=== PATIENT | female | born 1950 | race Caucasian/White ===

== ENCOUNTER → 2017-04-22 | Outpatient (CLI) | payer BC ==
--- NOTE | 2017-04-22 17:11 | XR ---
EXAMINATION TYPE: XR chest 2V DATE OF EXAM: 04/22/2017 COMPARISON: 02/07/2011 HISTORY: 66-year-old female with cough and night sweats TECHNIQUE: Frontal and lateral views FINDINGS: The cardiomediastinal silhouette, aorta, and pulmonary vasculature are within normal limits. There is some patchy right basilar opacity, new from prior. No other consolidation or pleural effusion. IMPRESSION: Possible early pneumonia at the right base. Follow-up recommended.
[2017-04-24 10:19] LABS: Bordedella pertussis Not detected (Not detected); Bordetella holmesII Not detected (Not detected)
== END | disposition home or self-care (01) ==
LOC: LABMAIN 14:40
PROVIDERS: ATTEND Emergency Medicine
DX: R05 Cough (principal); R61 Generalized hyperhidrosis
CPT/HCPCS: 71020; 87798

== ENCOUNTER → 2017-05-17 | Outpatient (CLI) | payer BC ==
--- NOTE | 2017-05-17 14:50 | XR ---
EXAMINATION TYPE: XR chest 2V DATE OF EXAM: 05/17/2017 COMPARISON: Prior chest x-ray 04/22/2017 HISTORY: Pneumonia, J 19 TECHNIQUE: Frontal and lateral views of the chest are obtained. FINDINGS: There is improvement in aeration as compared to prior exam. No pneumothorax or pleural eff usion. Cardiac mediastinal silhouette, pulmonary vascularity and momo are stable. IMPRESSION: Improved right middle lobe pneumonia.
== END ==
LOC: RADXRMAIN 14:27
PROVIDERS: ATTEND Emergency Medicine
DX: J18.1 Lobar pneumonia, unspecified organism (principal)
CPT/HCPCS: 71020

== ENCOUNTER → 2018-03-06 | Outpatient (CLI) | payer BC ==
--- NOTE | 2018-03-06 16:19 | XR ---
EXAMINATION TYPE: XR chest 2V DATE OF EXAM: 03/06/2018 COMPARISON: Prior exam 05/17/2017 HISTORY: Fever and cough TECHNIQUE: Frontal and lateral views of the chest are obtained. FINDINGS: There is no focal air space opacity, pleural effusion, or pneumothorax seen. The cardiac silhouette size is within normal limits. The osseous structures are intact. IMPRESSION: No acute cardiopulmonary process.
== END | disposition home or self-care (01) ==
LOC: RADXRMAIN 13:18
PROVIDERS: ATTEND Family Medicine
DX: R05 Cough (principal); R50.9 Fever, unspecified
CPT/HCPCS: 71046

== ENCOUNTER → 2018-10-24 | Outpatient (CLI) | payer MEDICARE, BC ==
--- NOTE | 2018-11-01 09:03 | MM ---
Reason for exam: screening (asymptomatic). Last mammogram was performed 1 year and 1 month ago. History: Patient is postmenopausal and has history of other cancer at age 32. Family history of breast cancer in 2 paternal cousins. excisional biopsy of the left breast, October 20, 2006. Benign excisional biopsy of the left breast, July 02, 2001. Took estrogen for 10 years beginning at age 44. MG 3D Screening Mammo W/Cad Bilateral CC and MLO view(s) were taken. Prior study comparison: September 20, 2017, bilateral MG 3d screening mammo w/cad. January 30, 2015, bilateral MG screening mammo w CAD. The breast tissue is heterogeneously dense. This may lower the sensitivity of mammography. Chronic nodularity right breast. Subtle grouped calcifications left breast increased from prior study. ASSESSMENT: Incomplete: need additional imaging evaluation, BI-RAD 0 RECOMMENDATION: Special view mammogram of the left breast.
== END | disposition home or self-care (01) ==
LOC: RADMAMWWP 13:09
PROVIDERS: ATTEND Family Medicine
DX: Z12.31 Encounter for screening mammogram for malignant neoplasm of breast (principal)
CPT/HCPCS: 77063; 77067

== ENCOUNTER → 2018-10-31 | Outpatient (CLI) | payer MEDICARE, BC ==
--- NOTE | 2018-11-01 09:12 | MM ---
Reason for exam: additional evaluation requested from abnormal screening. Last mammogram was performed 1 year and 1 month ago. History: Patient is postmenopausal and has history of other cancer at age 32. Family history of breast cancer in 2 paternal cousins. excisional biopsy of the left breast, October 20, 2006. Benign excisional biopsy of the left breast, July 02, 2001. Took estrogen for 10 years beginning at age 44. Indicated problem(s): other indicated problem in the left breast. Physical Findings: Nurse Summary: a 0.5 x 0.5 cm dominant mass a 1 o'clock at the nipple. MG 3D Work Up W/Cad LT CC with magnification, LM with magnification, and LM view(s) were taken of the left breast. Prior study comparison: September 20, 2017, bilateral MG 3d screening mammo w/cad. January 30, 2015, bilateral MG screening mammo w CAD. There are suspicious grouped fine calcification in the left upper inner middle breast 6 cm from the nipple. Finding is changed when compared to prior studies. An ultrasound of the BB palpable on the left breast will be done. ASSESSMENT: Incomplete: Need prior studies RECOMMENDATION: Stereotactic core biopsy and ultrasound of the left breast. Ultrasound of the palpable.
--- NOTE | 2018-11-01 09:26 | USB ---
Reason for exam: additional evaluation requested from prior study. History: Patient is postmenopausal and has history of other cancer at age 32. Family history of breast cancer in 2 paternal cousins. excisional biopsy of the left breast, October 20, 2006. Benign excisional biopsy of the left breast, July 02, 2001. Took estrogen for 10 years beginning at age 44. Indicated problem(s): palpable abnormality in the left breast. US Breast Limited LT Left limited breast ultrasound including focal area of concern, retroareolar and axilla demonstrates 2.1 x 1.9 x 1.0 cm oval node at axilary tail, a 0.6 x 0.4 x 0.2 cm oval mixed hypoechoic lesion that correlates with the palpable at the 12 o'clock position. These results were verbally communicated with the patient and result sheet given to the patient on 10/31/18. ASSESSMENT: Suspicious, BI-RAD 4 RECOMMENDATION: Ultrasound core biopsy of the left breast. And a Stereo core Biopsy of the Left breast. Called Dr. Price with mammographic findings and has scheduled an appointment for the patient for 11/15/18 at 2:oo pm with Dr. Gross. Stereotactic core biopsy and ultrasound guided core biopsy are to be don on 11/27/18 at 8:00 am. An appointment has been made for the patient with Dr. Gross on 12/06/18 at 12:40 pm to go over the results. PRELIMINARY REPORT CALLED AND FAXED TO DR. GROSS ON 10/31/18.
== END | disposition home or self-care (01) ==
LOC: RADMAMWWP 07:42
PROVIDERS: ATTEND Family Medicine
DX: R92.8 Other abnormal and inconclusive findings on diagnostic imaging of breast (principal)
CPT/HCPCS: 77065; 76642; G0279; 77061

== ENCOUNTER → 2018-11-15 | Outpatient (CLI) | payer MEDICARE, BC ==
[2018-11-15 14:27] VITALS: BP 160/67; PULSE 78; RESP 18; TEMP 98.9; BMI 26.0
--- NOTE | 2018-11-15 15:21 | P.GSHP ---
History of Present Illness H&P Date: 11/15/18 Chief Complaint: abnormal mammogram and ultrasound left breast Skylar is a 68-year-old white female who presents with a routine mammogram revealing an area of concern in the left breast. There are suspicious grouped fine calcifications in the upper middle breast 6 cm from the nipple. This area is believed to be changed when compared to prior studies. Additionally an ultrasound was performed and in the ultrasound 0.6 cm lesion was identified at the 12 o'clock position which was at an area of palpable change and therefore biopsy was recommended of this site as well. The patient had not felt anything of concern in her breast prior to the radiographs. She denies any trauma or infection in the breast. She has no nipple discharge or skin changes for which she is concerned about at this time. Family History: 1. patient: thyroid cancer 2. sister: leukemia at 73 3. mother: thyroid cancer 4. sister: breast cancer Hormonal History: menarche: 15 : 3, 3 children, twins one miscarrage first at 31, breast fed: yes menopause: 43 hysterctomy for bleeding, no cancer BCP: none hormones: 10 years, prempro Past Surgical History: 1. total thyroidectomy 2. 2 c-sections 3. gallbladder 4. partial hysterectomy 5. breast biopsy times two left Past Medical History: 1. rheumatoid artritis 2. CREST syndrome 3. PUD Social History: smoke: none alcohol: none drugs: none - Constitutional Constitutional: Denies chills, Denies fever - EENT Comment: migraines in past now stopped Eyes: denies blurred vision, denies pain Ears: bilateral: tinnitus, deny: decreased hearing Ears, nose, mouth and throat: Reports headache, Denies sore throat - Breasts Breasts: bilateral: as per HPI - Cardiovascular Cardiovascular: Denies chest pain, Denies shortness of breath - Respiratory Respiratory: Denies cough, Denies 7 - Gastrointestinal Comment: esophogeal spasm, PUD Gastrointestinal: Reports constipation - Genitourinary (Female) Genitourinary: Denies dysuria, Denies hematuria - Menstruation Menstruation: Reports post hysterectomy - Musculoskeletal Comment: rheumatoid arthritis - Neurological Comment: telangectasia - Psychiatric Psychiatric: Denies anxiety, Denies depression - Endocrine Comment: thyroid cancer, parathroids removed with the surgery Endocrine: Denies fatigue, Denies weight change - Hematologic/Lymphatic Comment: none - Allergic/Immunologic Allergic/Immunologic: Reports as per HPI Past Medical History Past Medical History: Cancer, Rheumatoid Arthritis (RA), Thyroid Disorder Additional Past Medical History / Comment(s): hx thyroid cancer 1981, connective tissue disorder History of Any Multi-Drug Resistant Organisms: None Reported Past Surgical History: Appendectomy, Section, Cholecystectomy, Hysterectomy Additional Past Surgical History / Comment(s): Thyroidectomy Past Anesthesia/Blood Transfusion Reactions: No Reported Reaction Past Psychological History: No Psychological Hx Reported Smoking Status: Never smoker Past Alcohol Use History: None Reported Past Drug Use History: None Reported - Past Family History Father Family Medical History: Hypertension, Myocardial Infarction ([place]) Additional Family Medical History / Comment(s): at 39 [place] Mother Family Medical History: AFIB, Thyroid Disorder Additional Family Medical History / Comment(s): Thyroid cancer Medications and Allergies Home Medications Medication Instructions Recorded Confirmed Type Calcitriol 0.25 mcg PO WEEKLY 11/07/18 11/15/18 History Calcium Carbonate [Calcium] 1,000 mg PO DAILY 11/07/18 11/15/18 History Hydroxychloroquine Sulfate 200 mg PO BID 11/07/18 11/15/18 History [Plaquenil] Levothyroxine Sodium [Synthroid] 88 mcg PO DAILY 11/07/18 11/15/18 History Liothyronine Sodium 25 mcg PO DAILY 11/07/18 11/15/18 History Nisoldipine [Sular] 30 mg PO DAILY 11/07/18 11/15/18 History Allergies Allergy/AdvReac Type Severity Reaction Status Date / Time leflunomide [From Arava] Allergy Rash/Hives Verified 11/07/18 10:59 methotrexate AdvReac Unknown Verified 10/31/18 08:35 morphine AdvReac Unknown Verified 10/31/18 08:35 Surgical - Exam Vital Signs Temp Pulse Resp BP Pulse Ox 98.9 F 78 18 160/67 98 11/15/18 13:55 11/15/18 13:55 11/15/18 13:55 11/15/18 13:55 11/15/18 13:55 - General well developed, well nourished, no distress - Eyes normal ocular movement - ENT no hearing loss, no congestion - Neck no masses, trachea midline - Respiratory normal respiratory effort, clear to auscultation - Cardiovascular Rhythm: regular Heart Sounds: normal: S1, S2 - Abdomen Abdomen: soft - Integumentary well healed scars left breast - Neurologic no disoriented, no combative - Musculoskeletal normal gait, normal posture - Psychiatric oriented to time, oriented to place, memory intact Breast examination: Right breast: Multi-positional exam no dominant masses or nodules of concern Right axilla: No adenopathy of concern Left breast: Multi-positional exam well-healed scars in the 9 o'clock position left axilla: no adenopathy of concern Results mammogram and ultrasound radiographs reviewed Assessment and Plan Assessment: Impression: 1. Crest syndrome 2. Abnormal mammogram and ultrasound of the left breast 3. rheumatoid arthritis Plan: 1. stero and ultrasound biopsy of the left breast 2. medical managment of medical problems CC: Dr. Aggarwal
== END ==
LOC: WWCWWP 13:47
PROVIDERS: ATTEND Surgery
DX: Z53.9 Procedure and treatment not carried out, unspecified reason (principal)

== ENCOUNTER → 2018-11-27 | Day surgery (SDC) | payer MEDICARE, BC ==
[2018-11-27 07:25] VITALS: RESP 16; BMI 26.2
--- NOTE | 2018-11-27 08:50 | P.OP ---
Date of Procedure: 11/27/18 Preoperative Diagnosis: Mammographic abnormality left breast Postoperative Diagnosis: Same Procedure(s) Performed: Left breast stereotactic core biopsy Anesthesia: local Surgeon: Roxanne Gross Estimated Blood Loss (ml): 2 Pathology: other (Breast tissue) Condition: stable Disposition: same day Indications for Procedure: Mammographic abnormality of suspicious grouped fine calcifications left breast upper inner middle breast 6 cm from the nipple Operative Findings: Microcalcifications in radiographed specimen Description of Procedure: Skylar is a 68-year-old white female who on a mammogram done 10/31/18 was noted to have a suspicious finding of grouped calcifications in the left breast in the upper inner middle area 6 cm from the nipple. The finding was changed when compared to prior studies. Stereotactic biopsy of this area was recommended. Additionally an ultrasound was done of a palpable area in the left breast which revealed a small lesion; an ultrasound-guided biopsy of the site was also recommended. Risks and benefits of the procedure were discussed with the patient and her . Following this they wished to proceed with stereotactic biopsy of the left breast, this will be followed by ultrasound biopsy of the area noted of concern as well. The patient was taken to the stereotactic room and positioned on the lo-rad table such that a medial to lateral approach was utilized to identify the lesion of concern. After the lesion of concern had been identified radiographically, stereotactic pairs were obtained. The lesion was targeted. The target was transmitted to the lo rad table. The breast was prepped using Betadine. 1% lidocaine with bicarbonate was used to anesthetize the area of concern. Approximately 20 mL of lidocaine was utilized. A 9-gauge vacuum- assisted cutting rotating core biopsy needle was inserted into the breast and prefire films were obtained. This was noted to be in the correct location and the needle was fired. Post films were obtained and the correct location was confirmed. 12 samples were obtained from the area. Radiograph of the specimen revealed the area of concern had been sampled. A secure chikis top had marker was deployed and radiographic evaluation confirmed it was in the correct location. The specimen was sent to pathology. The patient tolerated the procedure in stable condition. She will follow-up Dr. Bobo next week. Prior to leaving the radiology department today an ultrasound will be performed with a possible ultrasound core biopsy of the second area in the breast.
[2018-11-27 10:10] VITALS: BP 114/68; PULSE 70; TEMP 97.8
--- NOTE | 2018-11-27 12:18 | USB ---
EXAMINATION TYPE: MG stereo VAD BX LT, US biopsy breast VAD LT DATE OF EXAM: 11/27/2018 CLINICAL HISTORY: 68-year-old female referred for biopsy of left breast microcalcifications and also for a palpable ultrasound finding at 12:00. R92.8 ABNORMAL MAMMOGRAM. TECHNIQUE: Stereotactic guided core biopsy of the left breast microcalcifications. Ultrasound-guided biopsy of the small 4 to 5 mm palpable area at 12:00. COMPARISON: 10/24/2018 and 10/31/2018 FINDINGS: STEREOTACTIC BIOPSY, LEFT, 10:00 microcalcifications: The procedure of stereotactic guided core biopsy was explained to the patient. Benefits, alternatives, and risks were discussed. An informed consent was then obtained. The shortness pathway for biopsy was chosen. Shortness pathway was a medial approach. I performed the localization, then surgeon, Dr. Jeramie Esposito performed the remainder of the procedure. A vacuum assisted biopsy gun was used to obtain multiple core samples. The patient tolerated the procedure well without any immediate complication. The patient was kept in the radiology department for short stay after the procedure and then discharged home in stable condition. Targeted calcifications are identified in specimen mammogram. Post biopsy mammogram shows the clip to appear in satisfactory position relative to the targeted area of concern on the preprocedure images at approximately 10:00 position. ULTRASOUND-GUIDED BIOPSY, LEFT 12:00 PALPABLE 4 to 5 mm lesion: The procedure of ultrasound guided core biopsy was explained to the patient. Benefits, alternatives, and risks were discussed. An informed consent was then obtained. The patient was placed in supine positioning for imaging and for the procedure. The overlying skin was prepped and draped in usual sterile fashion. Lidocaine buffered with bicarbonate was used as anesthetic into the skin and subcutaneous tissue up to area of concern in the 12:00 left breast. Under ultrasound guidance, a 13-gauge vacuum-assisted mammotome Elite biopsy gun device was used to obtain 3 core samples. Following this, a wing clip was left at the site of biopsy. Essentially the entire lesion was sampled during the 3 passes. The patient tolerated the procedure well without any immediate complication. The patient was kept in the radiology department for short stay after the procedure and then discharged home in stable condition. Post procedure mammogram shows the wing clip at the central 12 to 1:00 position anteriorly in the left breast. IMPRESSION: Successful, uncomplicated: 1. Stereotactic core needle biopsy of 10:00 microcalcifications in the left breast. 2. Ultrasound guided core biopsy of small but palpable 12:00 area in the left breast. Full pathology results to follow. Pathology Results: Malignant A. 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 Background fibrocystic changes. B. LEFT BREAST, 12:00, ULTRASOUND GUIDED CORE BIOPSY: Benign breast with stromal fibrosis. Recommendation Surgical consult of the left breast. Continued surgical management. Xray guided localization. MTDD
== END | disposition home or self-care (01) ==
LOC: RADMAMWWP 06:51
PROVIDERS: ATTEND Surgery
DX: D05.12 Intraductal carcinoma in situ of left breast (principal); N60.32 Fibrosclerosis of left breast; Z88.8 Allergy status to other drugs, medicaments and biological substances
CPT/HCPCS: 88305 ×2; 88342; 88341; 19081; 19083; A4648 ×2; J2001

== ENCOUNTER → 2018-11-30 | Outpatient (CLI) | payer MEDICARE, BC ==
[2018-11-30 12:08] VITALS: BP 142/68; PULSE 80; RESP 18; TEMP 97.1
--- NOTE | 2018-11-30 13:14 | P.PN ---
Subjective Progress Note Date: 11/30/18 The patient is a 68-year-old white female who is status post core biopsy of 2 areas of concern in the left breast on . The stereotactic core biopsy was low-grade DCIS approximately 2 mm in size. The second area at 12:00 was an ultrasound-guided core biopsy which revealed benign breast with stromal fibrosis. The patient at this time is doing well without complaints related to the biopsies. Physical exam: Examination of the breast reveals a core biopsy sites are clean and dry No evidence of hematoma No evidence of any infection The results of the biopsy were discussed in detail with the patient and her . They were given the option of lumpectomy and radiation therapy including possible Nandini radiation therapy versus mastectomy. We discussed the fact that this would be presented at tumor board and at this time I'm not recommending a sentinel node biopsy but that this may be recommended after tumor board. The patient and her also understand that if a lumpectomy is performed there is a risk that the margins could be positive would have to go back and reexcision of that the lesion could be found to have an invasive component in which case it will be recommended that she have further interrogation of the axilla. At this time they wish to proceed with a lumpectomy. The case will be presented at tumor board. This is a TisN0 M0 grade 1 breast cancer stage is 0 receptor status is pending. Cc: Dr. Price Objective - Vital Signs Vital signs: Vital Signs Temp 97.1 F L 11/30/18 12:06 Pulse 80 11/30/18 12:06 Resp 18 11/30/18 12:06 BP 142/68 11/30/18 12:06 Pulse Ox 95 11/30/18 12:06 Intake & Output 11/29/18 11/30/18 11/30/18 18:59 06:59 18:59 Weight 66.224 kg
--- NOTE | 2018-12-11 16:02 | P.PN ---
Progress Note - Text Progress Note Date: 12/11/18 Following presentation of the patients case at tumor board there was some consideration if the patient would be a candidate for genetic testing. I have given the patient the option, and at this time she wishes to proceed with surgery without genetic evaluation. She states that even if she were to be BRCA1 positive at this time it would not change her surgical decision making and she would proceed with a lumpectomy.
== END ==
LOC: WWCWWP 11:42
PROVIDERS: ATTEND Surgery
DX: Z53.9 Procedure and treatment not carried out, unspecified reason (principal)

== ENCOUNTER 2018-12-18 10:03 | Day surgery (SDC) | payer MEDICARE, BC ==
[2018-12-14 09:32] VITALS: BMI 25.8
[~2018-12-18 10:03] MED LIST: DEXAMETHASONE SOD PHOSPHATE 10 MG/ML 1 ML VIAL IV ONE; HEPARIN SODIUM,PORCINE 5,000 UNIT/ML 1 ML VIAL SQ ONE; HYDROmorphone 0.5 MG/0.5 ML SYRINGE IVP PRN; LACTATED RINGERS 1,000 ML IV SCH; LIDOCAINE 1% 20 ML VIAL (10MG/ML) FOR IV START INTRADERMA PRN; MIDAZOLAM 2 MG/2 ML VIAL IV PRN; ONDANSETRON 4 MG/2 ML VIAL IVP ONE; Pre Op ABX Message 1 EACH MISC MISCELLANE ONE; SCOPOLAMINE 1.5MG/72HR PATCH TRANSDERM ONE
[2018-12-18] MEDS ORDERED: HEPARIN SODIUM,PORCINE 5,000 UNIT/ML 1 ML VIAL SQ ONE (11:24)
--- NOTE | 2018-12-18 11:27 | P.NAPBC ---
NAPBC Queries - NAPBC Queries Was patient's case review presented at [facility] tumor board? If no, comment.: Yes Was patient's pathology reviewed at [facility]? If no, comment.: Yes Was breast conservation surgery offered? If no, comment.: Yes Was sentinel node biopsy offered? If no, comment.: Yes (discussed but not recommended) Was diagnosis confirmed by percutaneous core biopsy? If no, comment.: Yes If mastectomy patient, was a preop referral to a reconstructive surgeon offered? : Yes (not a mastectomy patient) Clinical Stage: TisNoMoER+[place]+
[2018-12-18] MEDS ORDERED: SODIUM BICARB 4% 5 ML VIAL (0.48 MEQ/ML) MISCELLANE ONE (11:36)
[2018-12-18] MEDS ORDERED: LIDOCAINE 1% INJ 10MG/ML (20 ML MDV) SQ ONE ×2 (11:36→12:57)
[2018-12-18] MEDS ORDERED: ROCURONIUM BROMIDE 10 MG/ML 10 ML VIAL IV ONE (12:31)
[2018-12-18] MEDS ORDERED: LIDOCAINE 1% INJ 10MG/ML (20 ML MDV) ONE (12:31)
[2018-12-18] MEDS ORDERED: MIDAZOLAM 2 MG/2 ML VIAL ONE (12:31)
[2018-12-18] MEDS ORDERED: ePHEDrine SULFATE/0.9% NACL/PF 50 MG/5 ML SYRINGE IV ONE (12:31)
[2018-12-18] MEDS ORDERED: NEOSTIGMINE 1 MG/ML 10 ML VIAL ONE (12:31)
[2018-12-18] MEDS ORDERED: PROPOFOL 10 MG/ML 20 ML VIAL IV ONE (12:31)
[2018-12-18] MEDS ORDERED: HYDROmorphone (PF) 1 MG/ML ONE (12:31)
[2018-12-18] MEDS ORDERED: fentaNYL (PF) 50 MCG/ML 2 ML AMP ONE (12:31)
[2018-12-18] MEDS ORDERED: GLYCOPYRROLATE 0.2 MG/ML 2 ML VIAL ONE (12:31)
--- NOTE | 2018-12-18 13:35 | P.OP ---
Date of Procedure: 12/18/18 Preoperative Diagnosis: Left breast ductal carcinoma in situ Postoperative Diagnosis: Same Procedure(s) Performed: Left breast needle localization and lumpectomy Anesthesia: LEANNAA Surgeon: Roxanne Gross Estimated Blood Loss (ml): 5 IV fluids (ml): 500 Pathology: other (Left breast tissue) Condition: stable Disposition: PACU Indications for Procedure: Core biopsy left breast ductal carcinoma in situ Operative Findings: Dense breast tissue Description of Procedure: The patient is a 68-year-old white female who underwent a stereotactic core biopsy of an area of concern in the left breast. Pathology revealed a 2 mm site of ductal carcinoma in situ. The patient was recommended to undergo a needle localization and lumpectomy. She understood the risks and benefits and chose to proceed. The patient was initially seen in the radiology department and needle localization of area of concern in the left breast was performed. The patient was then taken to the operating room and following induction of general anesthesia the left breast was prepped and draped in a state fashion. An incision was made and carried down to the needle. Surrounding tissue was excised. Dissection was performed posteriorly to the area of the pectoralis muscle. The specimen was removed and painted for orientation. Radiograph of the specimen revealed the area of concern had been removed. The wound was well irrigated. Hemostasis was attained using the electrocautery device and harmonic scalpel. Titanium clips were placed to chikis the area. Deep tissues were closed using 3-0 Vicryl suture. Using onco-plastic tissue technique, tissue under the superior skin flap was mobilized approximately 3 x 2 cm, and under the inferior skin flap it was mobilized approximately 3 x 2 cm. These tissues were brought together using 3-0 Vicryl suture. the skin was closed using 4-0 Monocryl. The specimen was sent to pathology after it had been radiographed. The patient tolerated the procedure in stable condition. All instrument and sponge counts were correct at the end of the case. The patient tolerated the procedure in stable condition.
--- NOTE | 2018-12-18 13:37 | P.DS ---
Providers Attending physician: Roxanne Gross Primary care physician: Roxanne Gross Plan - Discharge Summary Discharge Rx Participant: Yes New Discharge Prescriptions: No Action Liothyronine Sodium 25 mcg PO DAILY Levothyroxine Sodium [Synthroid] 88 mcg PO DAILY Hydroxychloroquine Sulfate [Plaquenil] 200 mg PO BID Calcium Carbonate [Calcium] 1,000 mg PO DAILY Calcitriol 0.25 mcg PO MOWEFR NIFEdipine [NIFEdipine ER] 30 mg PO DAILY Discharge Medication List Calcitriol 0.25 mcg PO MOWEFR 11/07/18 [History] Calcium Carbonate [Calcium] 1,000 mg PO DAILY 11/07/18 [History] Hydroxychloroquine Sulfate [Plaquenil] 200 mg PO BID 11/07/18 [History] Levothyroxine Sodium [Synthroid] 88 mcg PO DAILY 11/07/18 [History] Liothyronine Sodium 25 mcg PO DAILY 11/07/18 [History] NIFEdipine [NIFEdipine ER] 30 mg PO DAILY 12/14/18 [History] Follow up Appointment(s)/Referral(s): Roxanne Gross MD [Primary Care Provider] - 1 Week Activity/Diet/Wound Care/Special Instructions: Do not drive today Wear surgical bra until seen by Dr. Bobo Patient may shower after 48 hours Discharge Disposition: HOME SELF-CARE
[2018-12-18 13:47] VITALS: TEMP 97
[2018-12-18 14:42] VITALS: RESP 16
[2018-12-18 15:03] VITALS: BP 147/85; PULSE 98
--- NOTE | 2018-12-18 16:03 | MM ---
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 TECHNIQUE: Needle localization with wire placement and surgical excision of area of concern in the left breast. COMPARISON: 10/31/2018 FINDINGS: The procedure of needle localization with wire placement and than surgical excision was explained to the patient. Benefits, alternatives, and risks were discussed. An informed consent was then obtained. The shortest pathway for procedure was chosen. Shortest pathway was a medial approach. The overlying skin was prepped and draped in usual sterile fashion. Lidocaine buffered with bicarbonate was used as anesthetic into the skin and subcutaneous tissue up to the level of area of concern. A 7 cm Kopan's needle was used. It was placed via a medial approach under mammographic guidance. Subsequent 90 degrees mammogram show the needle to be in satisfactory position relative to the targeted area. At this point, wire was placed and the needle was withdrawn. The wire was fixed to patient's skin. Images were marked for surgeon. The patient tolerated the procedure well without any immediate complication. The patient was kept in the radiology department for short stay after the procedure and then taken to surgery for surgical excision. Targeted clip and wire are identified in specimen mammogram. The patient was kept in hospital for short stay after the procedure and then discharged home in stable condition. 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 Pathology Results: Malignant LEFT BREAST, LUMPECTOMY: Previous biopsy site with adjacent fibrocystic changes. No residual DCIS identified. Recommendation Follow up mammogram of the left breast in 6 months. MTDD
== END 2018-12-18 15:24 | disposition home or self-care (01) ==
LOC: OR 10:03
PROVIDERS: ATTEND Surgery
DX: D05.12 Intraductal carcinoma in situ of left breast (principal); Z79.899 Other long term (current) drug therapy; Z88.5 Allergy status to narcotic agent; I10 Essential (primary) hypertension; M06.9 Rheumatoid arthritis, unspecified; Z88.8 Allergy status to other drugs, medicaments and biological substances
CPT/HCPCS: 19301; 88307; 76098; 19281; J2250; J1644; J1100; J2710; J2405; J2001; J3010; J1170; J2704

== ENCOUNTER → 2018-12-21 | Outpatient (CLI) | payer MEDICARE, BC ==
[2018-12-21 13:50] VITALS: BP 135/72; PULSE 79; RESP 16; TEMP 97; BMI 25.8
--- NOTE | 2018-12-21 14:36 | P.PN ---
Subjective Progress Note Date: 12/21/18 Principal diagnosis: left breast DCIS Skylar is a 68-year-old white female status post needle local excisional biopsy of area of DCIS in the left breast performed on 12/18/2018. Postoperatively the patient is done well without any complaints. Pathology revealed biopsy cavity w ith no residual disease. Objective - Vital Signs Vital signs: Vital Signs Temp 97.0 F L 12/21/18 13:47 Pulse 79 12/21/18 13:47 Resp 16 12/21/18 13:47 BP 135/72 12/21/18 13:47 Pulse Ox 95 12/21/18 13:47 Intake & Output 12/20/18 12/21/18 12/21/18 18:59 06:59 18:59 Weight 66.224 kg - Exam BMI 25.9 - Constitutional General appearance: Present: average body habitus - EENT Eyes: Present: EOMI ENT: Present: hearing grossly normal - Neck Neck: Present: normal ROM - Respiratory Respiratory: - Cardiovascular Rhythm: regular Heart sounds: - Integumentary Integumentary Comment(s): Incision clean and dry, no evidence of infection Integumentary: Present: normal turgor - Psychiatric Psychiatric: Present: A&O x's 3, appropriate affect, intact judgment & insight Assessment and Plan Assessment: Impression: 1. 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 Patient with a history of crest syndrome 3. I've discussed at length with the patient and her the option of radiation and anti-hormone therapy, we have reviewed franchesca-grams from [facility], regarding benefits of treatment. We have reviewed risks of aromatase therapy as well as risks of radiation therapy. The patient and her admitted with medical and radiation oncology to decide further adjuvant therapy. Plan: 1. Follow up in 4 months 2. Follow up sooner if any questions 3. Appointment with medical oncology 3. Appointment with radiation oncology CC: Dr. Price
== END | disposition home or self-care (01) ==
LOC: WWCWWP 13:39
PROVIDERS: ATTEND Surgery
DX: Z53.9 Procedure and treatment not carried out, unspecified reason (principal)

== ENCOUNTER → 2019-05-23 | Outpatient (CLI) | payer MEDICARE, BC ==
[2019-05-23 14:54] VITALS: BP 123/65; PULSE 84; RESP 18; TEMP 98.4; BMI 26.2
--- NOTE | 2019-05-23 15:28 | P.PN ---
Subjective Progress Note Date: 05/23/19 Maritna is a 68-year-old white female status post left breast lumpectomy for an area of DCIS. This was ER/CO positive. She did not have radiation therapy. She is on an antiestrogen. She is not complaining of problems with night sweats. She does have crest syndrome and is not noted any new myalgias or arthritic problems. She is due for a left breast mammogram in June. Objective - Vital Signs Vital signs: Vital Signs Temp 98.4 F 05/23/19 14:51 Pulse 84 05/23/19 14:51 Resp 18 05/23/19 14:51 BP 123/65 05/23/19 14:51 Pulse Ox 94 L 05/23/19 14:51 Intake & Output 05/22/19 05/23/19 05/23/19 18:59 06:59 18:59 Weight 67.132 kg - Exam BMI 26.2 - Constitutional General appearance: Present: average body habitus - EENT Eyes: Present: EOMI ENT: Present: hearing grossly normal - Neck Neck: Present: normal ROM Thyroid: bilateral: normal size - Respiratory Respiratory: bilateral: CTA - Cardiovascular Rhythm: regular Heart sounds: normal: S1, S2 - Integumentary Integumentary: Present: normal turgor - Musculoskeletal Musculoskeletal: Present: gait normal - Psychiatric Psychiatric: Present: A&O x's 3, appropriate affect, intact judgment & insight - Additional findings Additional findings: breast examination: Right breast: Multi-positional exam no dominant masses or nodules of concern Right axilla: No adenopathy of concern Left breast: Multi-positional exam no dominant masses or nodules of concern, well-healed scars no evidence of recurrent disease Left axilla: No adenopathy of concern Assessment and Plan Assessment: Impression: 1. Patient status post left breast lumpectomy for ductal carcinoma in situ 2. Patient presently on anastrozole 3. Crest syndrome 4. Intermittent cough 5. Intermittent headache 6. No evidence of recurrent DCIS Plan: 1. Left breast mammogram if stable to call for results follow-up examination in 4 months, bilateral mammogram in 6 months 2. Continue anastrozole 3. Follow-up with primary care doctor regarding cough, headache, and crest syndrome CC: Dr. Price
== END | disposition home or self-care (01) ==
LOC: WWCWWP 14:43
PROVIDERS: ATTEND Surgery
DX: Z53.9 Procedure and treatment not carried out, unspecified reason (principal)

== ENCOUNTER → 2019-07-03 | Outpatient (CLI) | payer MEDICARE, BC ==
--- NOTE | 2019-07-03 10:40 | MM ---
Reason for exam: follow-up at short interval from prior study. Last mammogram was performed 8 months ago. History: Patient is postmenopausal, has history of breast cancer at age 68, and has history of other cancer at age 32. Family history of breast cancer in 2 paternal cousins. Malignant MG pre op needle loc LT of the left breast, December 18, 2018. Lumpectomy of the left breast, December 18, 2018. Malignant MG stereo VAD BX LT of the left breast, November 27, 2018. Malignant US biopsy breast VAD LT of the left breast, November 27, 2018. Lumpectomy of the left breast, October 20, 2006. Benign excisional biopsy of the left breast, July 02, 2001. Took estrogen for 10 years beginning at age 44. Physical Findings: Nurse did not find any significant physical abnormalities on exam. MG 3D Diag Mammo W/Cad LT CC, MLO, and ML view(s) were taken of the left breast. Prior study comparison: October 31, 2018, left breast MG 3d work up w/cad LT. October 24, 2018, bilateral MG 3d screening mammo w/cad. The breast tissue is heterogeneously dense. This may lower the sensitivity of mammography. Previous mammotome biopsy in the left breast. Post lumpectomy changes left breast. No significant new findings when compared with previous films. These results were verbally communicated with the patient and result sheet given to the patient on 07/03/19. ASSESSMENT: Benign, BI-RAD 2 RECOMMENDATION: Follow-up diagnostic mammogram of both breasts in 4 months. Back on schedule for October 2019.
== END ==
LOC: RADMAMWWP 09:31
PROVIDERS: ATTEND Surgery
DX: Z08 Encounter for follow-up examination after completed treatment for malignant neoplasm (principal); Z85.3 Personal history of malignant neoplasm of breast
CPT/HCPCS: 77065; G0279; 77061

== ENCOUNTER → 2019-10-01 | Outpatient (CLI) | payer MEDICARE, BC ==
--- NOTE | 2019-10-01 13:50 | XR ---
EXAMINATION TYPE: XR chest 2V DATE OF EXAM: 10/01/2019 COMPARISON: Prior chest x-ray 03/06/2018 HISTORY: Chronic cough TECHNIQUE: Frontal and lateral views of the chest are obtained. FINDINGS: There is no focal air space opacity, pleural effusion, or pneumothorax seen. The cardiac silhouette size is within normal limits. The osseous structures are intact. Surgical clips are pres ent in the left breast. IMPRESSION: No acute cardiopulmonary process.
== END | disposition home or self-care (01) ==
LOC: RADXRMAIN 10:35
PROVIDERS: ATTEND Emergency Medicine
DX: R05 Cough (principal); Z87.39 Personal history of other diseases of the musculoskeletal system and connective tissue
CPT/HCPCS: 71046

== ENCOUNTER → 2019-10-01 | Outpatient (CLI) | payer MEDICARE, BC ==
[2019-10-01 10:53] LABS: Basophils % (A) 1 %; Eosinophils # (A) 0.1 k/uL (0-0.7); Eosinophils % (A) 2 %; HCT 45.7 % (34.0-46.0); HGB 15.1 gm/dL (11.4-16.0); Lymphocytes # (A) 0.6 k/uL (1.0-4.8); Lymphocytes % (A) 10 %; MCH 29.9 pg (25.0-35.0); MCV 90.6 fL (80.0-100.0); Mean Platelet Volume 7.8; Monocytes # (A) 0.3 k/uL (0-1.0); Monocytes % (A) 5 %; Neutrophils # (A) 4.6 k/uL (1.3-7.7); Neutrophils % (A) 80 %; Platelet Count 235 k/uL (150-450); RBC 5.05 m/uL (3.80-5.40); RDW 12.4 % (11.5-15.5); WBC 5.7 k/uL (3.8-10.6)
[2019-10-01 11:44] LABS: Erythrocyte Sedimentation Rate 8 mm/hr (0-20)
== END | disposition home or self-care (01) ==
LOC: LABWHC1 09:43
PROVIDERS: ATTEND Emergency Medicine
DX: Z09 Encounter for follow-up examination after completed treatment for conditions other than malignant neoplasm (principal); Z87.39 Personal history of other diseases of the musculoskeletal system and connective tissue
CPT/HCPCS: 36415; 85025; 85652; 86140

== ENCOUNTER → 2020-09-30 | Outpatient (CLI) | payer MEDICARE, BC ==
--- NOTE | 2020-09-30 10:32 | MM ---
Reason for exam: additional evaluation requested from prior study. Last mammogram was performed 1 year and 3 months ago. History: Patient is postmenopausal, has history of breast cancer at age 68, and has history of other cancer at age 32. Family history of breast cancer in 2 paternal cousins. Malignant MG pre op needle loc LT of the left breast, December 18, 2018. Lumpectomy of the left breast, December 18, 2018. Malignant MG stereo VAD BX LT of the left breast, November 27, 2018. Malignant US biopsy breast VAD LT of the left breast, November 27, 2018. Lumpectomy of the left breast, October 20, 2006. Benign excisional biopsy of the left breast, July 02, 2001. Took estrogen for 10 years beginning at age 44. Physical Findings: Nurse did not find any significant physical abnormalities on exam. MG 3D Diag Mammo W/Cad TROY Bilateral CC and MLO view(s) were taken. Prior study comparison: July 03, 2019, left breast MG 3d diag mammo w/cad LT. October 31, 2018, left breast MG 3d work up w/cad LT. There are scattered fibroglandular densities. Stable post operative changes left breast. No significant new findings when compared with previous films. These results were verbally communicated with the patient and result sheet given to the patient on 09/30/20. ASSESSMENT: Benign, BI-RAD 2 RECOMMENDATION: Follow-up diagnostic mammogram of both breasts in 1 year.
== END | disposition home or self-care (01) ==
LOC: RADMAMWWP 09:31
PROVIDERS: ATTEND Surgery
DX: R92.8 Other abnormal and inconclusive findings on diagnostic imaging of breast (principal)
CPT/HCPCS: 77066; G0279; 77062

== ENCOUNTER → 2020-10-02 | Outpatient (CLI) | payer MEDICARE, BC ==
--- NOTE | 2020-10-02 14:01 | P.PN ---
Subjective Progress Note Date: 10/02/20 Principal diagnosis: stage 0 left breast cancer Skylar is a 70-year-old white female who presented on 11-15-18 with a routine mammogram revealing an area of concern in the left breast. There were suspicious grouped fine calcifications in the upper middle breast 6 cm from the nipple. This area was believed to be changed when compared to prior studies. Additionally an ultrasound was performed and on the ultrasound a 0.6 cm lesion was identified at the 12 o'clock position which was at an area of palpable change and therefore biopsy was recommended of this site as well. The patient had not felt anything of concern in her breast prior to the radiographs. She denied any trauma or infection in the breast. She has no nipple discharge or skin changes for which she is concerned about at this time. She underwent core biopsy of 2 areas of concern in the left breast on . 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 Secondary at 12:00 was benign breast tissue with stromal fibrosis. After discussion the patient opted for a lumpectomy. The lumpectomy was performed and 3518. The lumpectomy revealed biopsy cavity with no residual disease. She was seen in consultation by both medical and radiation oncology. She had a bilateral mammogram performed on . This was felt to be benign BIRADS 2 She met with radiation oncology and decided not to proceed with adjuvant radiation therapy. Genetic testing was performed which was normal. She is taking and tolerating well arimidex. She is not complaining of any masses or nodules of concern in either breast. She is not complaining of any skin changes or nipple discharge of concern. Family History: 1. patient: thyroid cancer 2. sister: leukemia at 73 3. mother: thyroid cancer 4. sister: breast cancer Hormonal History: menarche: 15 : 3, 3 children, twins one miscarrage first at 31, breast fed: yes menopause: 43 hysterctomy for bleeding, no cancer BCP: none hormones: 10 years, prempro Past Surgical History: 1. total thyroidectomy 2. 2 c-sections 3. gallbladder 4. partial hysterectomy 5. breast biopsy times two left 6. Left breast lumpectomy Past Medical History: 1. rheumatoid artritis 2. CREST syndrome 3. PUD Social History: smoke: none alcohol: none drugs: none - Constitutional Constitutional: Denies chills, Denies fever - EENT Comment: migraines in past now stopped Eyes: denies blurred vision, denies pain Ears: bilateral: tinnitus, deny: decreased hearing Ears, nose, mouth and throat: Reports headache, Denies sore throat - Breasts Breasts: bilateral: as per HPI - Cardiovascular Cardiovascular: Denies chest pain, Denies shortness of breath - Respiratory Respiratory: Denies cough - Gastrointestinal Comment: esophogeal spasm, PUD Gastrointestinal: Reports constipation - Genitourinary (Female) Genitourinary: Denies dysuria, Denies hematuria - Menstruation Menstruation: Reports post hysterectomy - Musculoskeletal Comment: rheumatoid arthritis - Neurological Comment: telangectasia - Psychiatric Psychiatric: Denies anxiety, Denies depression - Endocrine Comment: thyroid cancer, parathroids removed with the surgery Endocrine: Denies fatigue, Denies weight change - Hematologic/Lymphatic Comment: none - Allergic/Immunologic Allergic/Immunologic: Reports as per HPI Objective - Exam BMI 26.9 - Constitutional General appearance: Present: average body habitus - EENT Eyes: Present: EOMI ENT: Present: hearing grossly normal - Neck Neck: Present: normal ROM - Respiratory Respiratory: bilateral: CTA - Cardiovascular Rhythm: regular Heart sounds: normal: S1, S2 - Gastrointestinal General gastrointestinal: Present: normal bowel sounds, soft - Musculoskeletal Musculoskeletal: Present: gait normal - Psychiatric Psychiatric: Present: A&O x's 3, appropriate affect, intact judgment & insight - Additional findings Additional findings: Breast exam: BRA: 38C inspection: grade 2 ptosis bilateral, well healed scar left breast Operation: Right breast: Multiple positional exam positive for cystic changes, no dominant masses or nodules of concern Right axilla: No adenopathy of concern Left breast: Multi-positional exam reveals scars no dominant masses or nodules of concern Left axilla: No adenopathy of concern Assessment and Plan Assessment: Impression: 1. stage 0 left breast cancer, no evidence of recurrence 2. Arthritis 3. CREST syndrome 4. PUD Plan: 1. follow up in 6 months 2. bilateral mammogram in one hear 3. continue arimidex CC: Dr. Albert waldrop 15 minutes, > 50% of time in planning and counselling
== END | disposition home or self-care (01) ==
DX: Z53.9 Procedure and treatment not carried out, unspecified reason (principal)

== ENCOUNTER → 2021-02-16 | Outpatient (CLI) | payer MEDICARE ==
[2021-02-16 20:03] LABS: Basophils # (A) 0.04 X 10*3/uL (0.00-0.10); Basophils % (A) 0.8 %; Eosinophils # (A) 0.17 X 10*3/uL (0.04-0.35); Eosinophils % (A) 3.3 %; HCT 46.2 % (37.2-46.3); HGB 14.7 g/dL (12.0-15.0); Lymphocytes # (A) 0.69 X 10*3/uL (0.90-5.00); Lymphocytes % (A) 13.4 %; MCH 29.3 pg (27.0-32.0); MCHC 31.8 g/dL (32.0-37.0); MCV 92.2 fL (80.0-97.0); Mean Platelet Volume 11.8 fL (9.5-12.2); Monocytes # (A) 0.66 X 10*3/uL (0.20-1.00); Monocytes % (A) 12.8 %; Neutrophils # (A) 3.58 X 10*3/uL (1.80-7.70); Neutrophils % (A) 69.3 %; Platelet Count 240 X 10*3/uL (140-440); RBC 5.01 X 10*6/uL (4.10-5.20); RDW 13.2 % (11.5-14.5); WBC 5.16 X 10*3/uL (4.50-10.00)
[2021-02-16 22:23] LABS: Erythrocyte Sedimentation Rate 7 mm/Hr (0-30)
[2021-02-17 05:41] LABS: African American GFR (CKD) 102.5 (60.0-200.0); C Reactive Protein 1.9 mg/dL (0.0-0.8); Calcium 8.9 mg/dL (8.7-10.3); Non-African American GFR(CKD) 88.4 (60.0-200.0)
[2021-02-17 05:42] LABS: Albumin 4.3 g/dL (3.80-4.90)
== END | disposition home or self-care (01) ==
LOC: LABWHC1 10:43
PROVIDERS: ATTEND Internal Medicine Rheumatology
DX: M25.50 Pain in unspecified joint (principal); M06.4 Inflammatory polyarthropathy; Z79.899 Other long term (current) drug therapy
CPT/HCPCS: 36415; 82040; 82310; 82565; 84450; 84460; 84520; 85025; 85652; 86140; 86200; 86431

== ENCOUNTER → 2021-04-08 | Outpatient (CLI) | payer MEDICARE, BC ==
[2021-04-08 14:09] VITALS: BP 133/81; PULSE 89; RESP 18
--- NOTE | 2021-04-08 14:19 | P.PN ---
Subjective Progress Note Date: 04/08/21 Principal diagnosis: stage 0 left breast cancer stage 0 left breast cancer Skylar is a 70-year-old white female who presented on 11-15-18 with a routine mammogram revealing an area of concern in the left breast. There were suspicious grouped fine calcifications in the upper middle breast 6 cm from the nipple. This area was believed to be changed when compared to prior studies. Additionally an ultrasound was performed and on the ultrasound a 0.6 cm lesion was identified at the 12 o'clock position which was at an area of palpable change and therefore biopsy was recommended of this site as well. The patient had not felt anything of concern in her breast prior to the radiographs. She denied any trauma or infection in the breast. She has no nipple discharge or skin changes for which she is concerned about at this time. She underwent core biopsy of 2 areas of concern in the left breast on . 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 Biopsy of the lesion at 12:00 was benign breast tissue with stromal fibrosis. After discussion the patient opted for a lumpectomy. The lumpectomy was performed on 3518. The lumpectomy revealed biopsy cavity with no residual disease. She was seen in consultation by both medical and radiation oncology. She had a bilateral mammogram performed on . This was felt to be benign BIRADS 2 She met with radiation oncology and decided not to proceed with adjuvant radiati on therapy. Genetic testing was performed which was normal. She is taking and tolerating well arimidex. She is not complaining of any masses or nodules of concern in either breast. She is not complaining of any skin changes or nipple discharge of concern. Family History: 1. patient: thyroid cancer 2. sister: leukemia at 73 3. mother: thyroid cancer 4. sister: breast cancer Hormonal History: menarche: 15 : 3, 3 children, twins one miscarrage first at 31, breast fed: yes menopause: 43 hysterctomy for bleeding, no cancer BCP: none hormones: 10 years, prempro Past Surgical History: 1. total thyroidectomy 2. 2 c-sections 3. gallbladder 4. partial hysterectomy 5. breast biopsy times two left 6. Left breast lumpectomy Past Medical History: 1. rheumatoid artritis 2. CREST syndrome 3. PUD Social History: smoke: none alcohol: none drugs: none - Constitutional Constitutional: Denies chills, Denies fever - EENT Comment: migraines in past now stopped Eyes: denies blurred vision, denies pain Ears: bilateral: tinnitus, deny: decreased hearing Ears, nose, mouth and throat: Reports headache, Denies sore throat - Breasts Breasts: bilateral: as per HPI - Cardiovascular Cardiovascular: Denies chest pain, Denies shortness of breath - Respiratory Respiratory: Denies cough - Gastrointestinal Comment: esophogeal spasm, PUD Gastrointestinal: Reports constipation - Genitourinary (Female) Genitourinary: Denies dysuria, Denies hematuria - Menstruation Menstruation: Reports post hysterectomy - Musculoskeletal Comment: rheumatoid arthritis - Neurological Comment: telangectasia - Psychiatric Psychiatric: Denies anxiety, Denies depression - Endocrine Comment: thyroid cancer, parathroids removed with the surgery Endocrine: Denies fatigue, Denies weight change - Hematologic/Lymphatic Comment: none - Allergic/Immunologic Allergic/Immunologic: Reports as per HPI Objective - Constitutional General appearance: Present: average body habitus - EENT Eyes: Present: EOMI ENT: Present: hearing grossly normal - Neck Neck: Present: normal ROM - Respiratory Respiratory: bilateral: CTA - Cardiovascular Rhythm: regular Heart sounds: normal: S1, S2 - Gastrointestinal General gastrointestinal: Present: soft - Integumentary Integumentary: Present: normal turgor - Musculoskeletal Musculoskeletal: Present: gait normal - Psychiatric Psychiatric: Present: A&O x's 3, appropriate affect, intact judgment & insight - Additional findings Additional findings: Breast exam: BRA: 38C inspection: Bilateral grade 2 ptosis Palpation: Right breast: Multi-positional exam fibrocystic changes, no dominant masses or nodules of concern Right axilla: No adenopathy of concern Left breasts: Well-healed scar from prior surgery, no dominant masses or nodules of concern of multiple positional exam Left axilla: No adenopathy of concern Assessment and Plan Assessment: Impression: 1. CREST syndrome 2. arthritis 3. stage 0 left breast cancer 4. PUD Plan: 1. bilateral mammogram September 2021, follow up after this 2. continue arimidex 3. follow with medical oncology CC: DR. Price
== END ==
LOC: WWCWWP 13:57
PROVIDERS: ATTEND Surgery
DX: C50.912 Malignant neoplasm of unspecified site of left female breast (principal); M34.1 CR(E)ST syndrome; K27.9 Peptic ulcer, site unspecified, unspecified as acute or chronic, without hemorrhage or perforation; M06.9 Rheumatoid arthritis, unspecified; Z79.811 Long term (current) use of aromatase inhibitors; Z98.890 Other specified postprocedural states; Z88.5 Allergy status to narcotic agent; Z88.8 Allergy status to other drugs, medicaments and biological substances

== ENCOUNTER → 2021-10-04 | Outpatient (CLI) | payer MEDICARE ==
--- NOTE | 2021-10-04 09:50 | MM ---
Reason for exam: additional evaluation requested from prior study. Last mammogram was performed 1 year ago. History: Patient is postmenopausal, has history of breast cancer at age 68, and has history of other cancer at age 32. Family history of breast cancer in 2 paternal cousins. Malignant MG pre op needle loc LT of the left breast, December 18, 2018. Lumpectomy of the left breast, December 18, 2018. Malignant MG stereo VAD BX LT of the left breast, November 27, 2018. Malignant US biopsy breast VAD LT of the left breast, November 27, 2018. Lumpectomy of the left breast, October 20, 2006. Benign excisional biopsy of the left breast, July 02, 2001. Took estrogen for 10 years beginning at age 44. Physical Findings: Nurse did not find any significant physical abnormalities on exam. MG 3D Diag Mammo W/Cad TROY Bilateral CC and MLO view(s) were taken. Prior study comparison: September 30, 2020, bilateral MG 3d diag mammo w/cad TROY. July 03, 2019, left breast MG 3d diag mammo w/cad LT. There are scattered fibroglandular densities. There are clips in the left breast posterior middle position. There is chronic nodularity in the right breast. There is no discrete abnormality. These results were verbally communicated with the patient and result sheet given to the patient on 10/04/21. ASSESSMENT: Benign, BI-RAD 2 RECOMMENDATION: Follow-up diagnostic mammogram of both breasts in 1 year.
== END | disposition home or self-care (01) ==
LOC: RADMAMWWP 08:40
PROVIDERS: ATTEND Surgery
DX: Z78.0 Asymptomatic menopausal state (principal); Z85.3 Personal history of malignant neoplasm of breast; Z80.3 Family history of malignant neoplasm of breast
CPT/HCPCS: 77066; G0279; 77062

== ENCOUNTER → 2021-10-21 | Outpatient (CLI) | payer MEDICARE, BC ==
[2021-10-21 14:24] VITALS: BP 137/79; PULSE 76; RESP 16; TEMP 98.2
--- NOTE | 2021-10-21 14:46 | P.PN ---
Subjective Progress Note Date: 10/21/21 Principal diagnosis: srage 0 left breast cancer stage 0 left breast cancer Skylar is a 71-year-old white female who presented on 11-15-18 with a routine mammogram revealing an area of concern in the left breast. There were suspicious grouped fine calcifications in the upper middle breast 6 cm from the nipple. This area was believed to be changed when compared to prior studies. Additionally an ultrasound was performed and on the ultrasound a 0.6 cm lesion was identified at the 12 o'clock position which was at an area of palpable change and therefore biopsy was recommended of this site as well. The patient had not felt anything of concern in her breast prior to the radiographs. She denied any trauma or infection in the breast. She has no nipple discharge or skin changes for which she is concerned about at this time. She underwent core biopsy of 2 areas of concern in the left breast on . 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 Biopsy of the lesion at 12:00 was benign breast tissue with stromal fibrosis. After discussion the patient opted for a lumpectomy. The lumpectomy was performed on 3518. The lumpectomy revealed biopsy cavity with no residual disease. She was seen in consultation by both medical and radiation oncology. She had a bilateral mammogram performed on . This was felt to be benign BIRADS 2 She met with radiation oncology and decided not to proceed with adjuvant radiat ion therapy. Genetic testing was performed which was normal. She is taking and tolerating well arimidex. She is not complaining of any masses or nodules of concern in either breast. She is not complaining of any skin changes or nipple discharge of concern. Is not complaining of any new lumps masses or nodules in either breast. Patient has been noting some frequency of urination she has been seen by urology and no definite lesion of concern noted. Was also noting some pain in her right side and a recent ultrasound revealed a lesion on the left ovary. She is going to follow with gynecology. Note from DR. Hu 08-30-21 reviewed. Family History: 1. patient: thyroid cancer 2. sister: leukemia at 73 3. mother: thyroid cancer 4. sister: breast cancer Hormonal History: menarche: 15 : 3, 3 children, twins one miscarrage first at 31, breast fed: yes menopause: 43 hysterctomy for bleeding, no cancer BCP: none hormones: 10 years, prempro Past Surgical History: 1. total thyroidectomy 2. 2 c-sections 3. gallbladder 4. partial hysterectomy 5. breast biopsy times two left 6. Left breast lumpectomy Past Medical History: 1. rheumatoid artritis 2. CREST syndrome 3. PUD Social History: smoke: none alcohol: none drugs: none - Constitutional Constitutional: Denies chills, Denies fever - EENT Comment: migraines in past now stopped Eyes: denies blurred vision, denies pain Ears: bilateral: tinnitus, deny: decreased hearing Ears, nose, mouth and throat: Reports headache, Denies sore throat - Breasts Breasts: bilateral: as per HPI - Cardiovascular Cardiovascular: Denies chest pain, Denies shortness of breath - Respiratory Respiratory: Denies cough - Gastrointestinal Comment: esophogeal spasm, PUD Gastrointestinal: Reports constipation - Genitourinary (Female) Genitourinary: Denies dysuria, Denies hematuria - Menstruation Menstruation: Reports post hysterectomy - Musculoskeletal Comment: rheumatoid arthritis - Neurological Comment: telangectasia - Psychiatric Psychiatric: Denies anxiety, Denies depression - Endocrine Comment: thyroid cancer, parathroids removed with the surgery Endocrine: Denies fatigue, Denies weight change - Hematologic/Lymphatic Comment: none - Allergic/Immunologic Allergic/Immunologic: Reports as per HPI Objective - Vital Signs Vital signs: Vital Signs Temp 98.2 F 10/21/21 14:21 Pulse 76 10/21/21 14:21 Resp 16 10/21/21 14:21 BP 137/79 10/21/21 14:21 Pulse Ox Intake & Output 10/20/21 10/21/21 10/21/21 18:59 06:59 18:59 Weight 70.307 kg - Exam BMI 27.5 - Constitutional General appearance: Present: cooperative - EENT Eyes: Present: EOMI ENT: Present: hearing grossly normal - Neck Neck: Present: normal ROM - Respiratory Respiratory: bilateral: CTA - Cardiovascular Rhythm: regular Heart sounds: normal: S1, S2 - Integumentary Integumentary: Present: normal turgor - Musculoskeletal Musculoskeletal: Present: gait normal - Psychiatric Psychiatric: Present: A&O x's 3, appropriate affect, intact judgment & insight - Additional findings Additional findings: Breast Exam: BRA: 38C inspection: well healed scar left breast from prior surgery Outpatient: Right breast: Multi-positional exam fibrocystic changes no dominant masses or nodules of concern Right axilla: No adenopathy of concern Left breast: Multi-positional exam postop changes no dominant masses or nodules of concern Left axilla: No adenopathy of concern Assessment and Plan Assessment: Impression: 1. rheumatoid artritis 2. CREST syndrome 3. PUD 4. left breast stage 0 cancer, no evidence of recurrence Plan: 1. continue arimidex 2. bilateral mammogram September 2022 3. Follow-up with INVESTOR RELATIONS ANALYST regarding ovarian cyst 4. Follow with urology as needed regarding frequency of urination CC: Dr. Price
== END ==
LOC: WWCWWP 13:47
PROVIDERS: ATTEND Surgery
DX: Z85.3 Personal history of malignant neoplasm of breast (principal); M06.9 Rheumatoid arthritis, unspecified; M34.1 CR(E)ST syndrome; K27.9 Peptic ulcer, site unspecified, unspecified as acute or chronic, without hemorrhage or perforation; Z88.8 Allergy status to other drugs, medicaments and biological substances; Z88.5 Allergy status to narcotic agent

== ENCOUNTER → 2021-11-03 | Outpatient (CLI) | payer MEDICARE ==
--- NOTE | 2021-11-03 15:34 | US ---
EXAMINATION TYPE: US transvaginal DATE OF EXAM: 11/03/2021 COMPARISON: US 2021 CLINICAL HISTORY: N83.202 L ovarian cyst. Follow up ovarian cyst, 2, para 2, history of parti al hysterectomy TECHNIQUE: Transvaginal exam only per ordering physician Date of LMP: 25 years ago EXAM MEASUREMENTS: Right Ovary: not seen Left Ovary: 3.7 x 2.7 x 2.7 cm 1. Uterus: surgically absent 2. Endometrium: surgically absent 3. Right Ovary: not seen 4. Left Ovary: 2.8 x 1.9 x 1.9cm cystic area 5. Bilateral Adnexa: wnl 6. Posterior cul-de-sac: wnl IMPRESSION: 1. Normal post hysterectomy pelvic ultrasound.
== END | disposition home or self-care (01) ==
LOC: RADUSWWP 14:12
PROVIDERS: ATTEND Family Medicine
DX: N83.202 Unspecified ovarian cyst, left side (principal)
CPT/HCPCS: 76830

== ENCOUNTER → 2022-01-24 | Outpatient (CLI) | payer MEDICARE ==
--- NOTE | 2022-01-24 15:12 | US ---
EXAMINATION TYPE: US pelvic complete DATE OF EXAM: 01/24/2022 COMPARISON: NONE CLINICAL HISTORY: N83.0 LT OVARIAN CYST. follow up left ovarian cyst. partial hysterectomy TECHNIQUE: Transabdominal (TA). Date of LMP: unknown EXAM MEASUREMENTS: Uterus: Surgically absent Endometrial Stripe: Surgically absent Right Ovary: unable to visualize Left Ovary: 4.0 x 2.7 x 3.4 cm 1. Uterus: Surgically absent 2. Endometrium: Surgically absent 3. Right Ovary: Obscured by overlying bowel gas 4. Left Ovary: cystic area = 3.7 x 2.6 x 2.5cm 5. Bilateral Adnexa: appears wnl IMPRESSION: Probable functional ovarian cyst left ovary.
== END | disposition home or self-care (01) ==
LOC: RADUSWWP 14:49
PROVIDERS: ATTEND Obstetrics & Gynecology
DX: N83.202 Unspecified ovarian cyst, left side (principal)
CPT/HCPCS: 76856

== ENCOUNTER → 2022-09-29 | Outpatient (CLI) | payer MEDICARE ==
--- NOTE | 2022-09-29 09:27 | MM ---
Reason for Exam: Additional evaluation requested from prior study. Last screening mammogram was performed 12 month(s) ago. Patient History: Menarche at age 13. First Full-Term at age 31. Late child-bearing (after 31). Hysterectomy at age 43. Postmenopausal. Patient has history of breast feeding. Other cancer, age 32. Breast cancer, left, age 68. Estrogen for 10 years from age 44 until age 54. 10/20/2006, Lumpectomy on the Left side. 12/18/2018, Lumpectomy on the Left side. 12/18/2018, Malignant Core Biopsy on the left side. 11/27/2018, Malignant Core Biopsy on the left side. 11/27/2018, Malignant Core Biopsy on the left side. 07/02/2001, Benign Excisional Biopsy on the left side. Paternal cousin had breast cancer. Paternal cousin had breast cancer. Prior Study Comparison: 09/20/2017 Bilateral Screening Mammogram, [facility]. 10/24/2018 Bilateral Screening Mammogram, [facility]. 10/31/2018 Left Diagnostic Mammogram, [facility]. 07/03/2019 Left Diagnostic Mammogram, [facility]. 09/30/2020 Bilateral Diagnostic Mammogram, [facility]. 10/04/2021 Bilateral Diagnostic Mammogram, [facility]. Tissue Density: There are scattered fibroglandular densities. Findings: Analyzed By CAD. Pattern appears stable. Focal asymmetry adjacent to surgical clips which appears stable over the interval. No significant interval changes are evident. No suspicious spiculated or lobular masses clustered microcalcifications, or architectural distortion are radiographically apparent. Overall Assessment: Benign, BI-RAD 2 Management: Screening Mammogram of both breasts in 1 year. A clinical breast exam by your physician is recommended on an annual basis and results should be correlated with mammographic findings. This exam should not preclude additional follow-up of suspicious palpable abnormalities. Results were given to the patient verbally at the time of exam. Electronically signed and approved by: Kyree Wilson D.O. Radiologis
== END | disposition home or self-care (01) ==
LOC: RADMAMWWP 08:16
PROVIDERS: ATTEND Surgery
DX: R92.8 Other abnormal and inconclusive findings on diagnostic imaging of breast (principal); Z85.3 Personal history of malignant neoplasm of breast; Z78.0 Asymptomatic menopausal state; Z80.3 Family history of malignant neoplasm of breast
CPT/HCPCS: 77066; G0279; 77062

== ENCOUNTER → 2022-10-31 | Outpatient (CLI) | payer MEDICARE ==
[2022-10-31 18:03] LABS: Basophils # (A) 0.07 X 10*3/uL (0.00-0.10); Basophils % (A) 1.3 %; Eosinophils # (A) 0.15 X 10*3/uL (0.04-0.35); Eosinophils % (A) 2.9 %; HCT 47.9 % (37.2-46.3); HGB 15.7 g/dL (12.0-15.0); Immature Grans, Automated 0.2 %; Lymphocytes # (A) 0.86 X 10*3/uL (0.90-5.00); Lymphocytes % (A) 16.4 %; MCH 30.1 pg (27.0-32.0); MCHC 32.8 g/dL (32.0-37.0); MCV 91.9 fL (80.0-97.0); Mean Platelet Volume 11.5 fL (9.5-12.2); Monocytes # (A) 0.69 X 10*3/uL (0.20-1.00); Monocytes % (A) 13.2 %; NRBC Per 100 WBC 0 /100 WBCS (0.0-0.0); Neutrophils # (A) 3.45 X 10*3/uL (1.80-7.70); Platelet Count 239 X 10*3/uL (140-440); RBC 5.21 X 10*6/uL (4.10-5.20); RDW 13.3 % (11.5-14.5); WBC 5.23 X 10*3/uL (4.50-10.00)
[2022-10-31 18:08] LABS: Blood Urea Nitrogen 21.3 mg/dL (9.0-27.0); C Reactive Protein 0.8 mg/dL (0.00-0.80); Non-African American GFR(CKD) 74.2 (60.0-200.0)
[2022-10-31 18:37] LABS: Erythrocyte Sedimentation Rate 19 mm/Hr (0-30)
== END | disposition home or self-care (01) ==
LOC: LABWHC1 12:07
PROVIDERS: ATTEND Internal Medicine Rheumatology
DX: M25.50 Pain in unspecified joint (principal); M06.4 Inflammatory polyarthropathy; Z79.01 Long term (current) use of anticoagulants
CPT/HCPCS: 36415; 80204; 82565; 84450; 84460; 84520; 85025; 85652; 86140

== ENCOUNTER → 2022-12-29 | Outpatient (CLI) | payer MEDICARE ==
[2022-12-30 10:22] LABS: T4, Free (Free Thyroxine) 0.96 ng/dL (0.800-1.800)
== END | disposition home or self-care (01) ==
LOC: LABWHC1 15:29
PROVIDERS: ATTEND Internal Medicine
DX: C73 Malignant neoplasm of thyroid gland (principal); E89.0 Postprocedural hypothyroidism
CPT/HCPCS: 36415; 84432; 84439; 84443; 86800

== ENCOUNTER → 2023-03-10 | Outpatient (CLI) | payer MEDICARE ==
--- NOTE | 2023-03-10 11:56 | CA ---
Stress Echo Report Skylar Hull Age: 72 Gender: F : 1950 Exam Date: 03/10/2023 09:55 Exam Location: [facility] Ht (in): 62 Wt (lb): 155 Ordering Physician: Codey Price MD Referring Physician: Albert TREVIÑO Roof Bolter Operator: Aziza Martines RDCS Technologist Procedure CPT: Indication: R06.00 Dyspnea ICD-9 Codes: Rhythm: Patient History: Family history, Hypertension, Atypical angina, Dyspnea/SOB Cardiac Medications: Medications in past 24 hours: Contrast: Stress Results Protocol: Alfie Total dose(mL): Exercise Duration (min:sec): 7:[address] Depression (mm): Angina Score: Coleman Score: METS: 8.7 Resting HR: 83 Resting BP: 126 / 85 Peak HR: 146 Peak BP: 223 / 66 Max Predicted HR: 149 98 % Max Predicted HR Target HR: 127 Double Product: 26184 Stress Summary: The patient's target heart rate was achieved BP Response: Normal Reason for Termination: Reached target heart rate or work-load Cardiac Symptoms: Test terminated after reaching target heart rate (85% max predicted) ECG Analysis Resting ECG: Stress ECG: Arrhythmia: Echo Analysis Resting Echo: Peak Echo Analysis: MEASUREMENTS (Male/Female) Normal Values CONCLUSIONS Exercise stress echo Patient excessive Alfie protocol for 7-1/2 minutes achieving a peak heart rate 146 beats a minute. Hypertensive response to exercise, 223/66 mmHg Baseline 2-D echo images were normal Recent 2-D echo images normal Excellent augmentation of overall LV contractility without development of any wall motion abnormalities No ECG abnormalities of ischemia or arrhythmia Impression Average exercise capacity Normal stress echo Dr. Phillip Salvador MD (Electronically Signed) Final Date: 10 Mar 2023 11:55
== END | disposition home or self-care (01) ==
LOC: RADNMMAIN 09:20
PROVIDERS: ATTEND Family Medicine
DX: R06.00 Dyspnea, unspecified (principal)
CPT/HCPCS: 93351

== ENCOUNTER → 2023-05-02 | Outpatient (CLI) | payer MEDICARE ==
[2023-05-02 20:18] LABS: Blood Urea Nitrogen 18.2 mg/dL (9.0-27.0)
[2023-05-02 20:19] LABS: C Reactive Protein 0.9 mg/dL (0.00-0.80)
[2023-05-02 20:26] LABS: Basophils # (A) 0.03 X 10*3/uL (0.00-0.10); Basophils % (A) 0.7 %; Eosinophils # (A) 0.16 X 10*3/uL (0.04-0.35); Eosinophils % (A) 3.8 %; HCT 44.3 % (37.2-46.3); HGB 14.2 d/dL (12.0-15.0); Lymphocytes % (A) 16.7 %; MCH 29.3 pg (27.0-32.0); MCHC 32.1 d/dL (32.0-37.0); MCV 91.5 FL (80.0-97.0); Mean Platelet Volume 11.5 FL (9.5-12.2); Monocytes % (A) 14.3 %; NRBC Per 100 WBC 0 X 10*3/uL (0.00-0.01); Neutrophils % (A) 64.3 %; Platelet Count 245 X 10*3/uL (140-440); RBC 4.84 X 10*6/uL (4.10-5.20); RDW 12.4 % (11.5-14.5)
[2023-05-02 21:36] LABS: Erythrocyte Sedimentation Rate 11 mm/Hr (0-30)
== END | disposition home or self-care (01) ==
LOC: LABWHC1 12:22
PROVIDERS: ATTEND Internal Medicine Rheumatology
DX: M06.09 Rheumatoid arthritis without rheumatoid factor, multiple sites (principal); R79.82 Elevated C-reactive protein (CRP)
CPT/HCPCS: 36415; 84450; 84460; 84520; 85025; 85652; 86140

== ENCOUNTER → 2023-05-25 | Outpatient (CLI) | payer MEDICARE ==
[2023-05-25 13:20] VITALS: BP 112/71; PULSE 72; RESP 16; TEMP 98.3
--- NOTE | 2023-05-25 13:43 | P.PN ---
Subjective Progress Note Date: 05/25/23 Principal diagnosis: stage 0 stage 0 left breast cancer 2018 Skylar is a 72-year-old white female who presented on 11-15-18 with a routine mammogram revealing an area of concern in the left breast. There were suspicious grouped fine calcifications in the upper middle breast 6 cm from the nipple. This area was believed to be changed when compared to prior studies. Additionally an ultrasound was performed and on the ultrasound a 0.6 cm lesion was identified at the 12 o'clock position which was at an area of palpable change and therefore biopsy was recommended of this site as well. The patient had not felt anything of concern in her breast prior to the radiographs. She underwent core biopsy of 2 areas of concern in the left breast on . 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 Biopsy of the lesion at 12:00 was benign breast tissue with stromal fibrosis. After discussion the patient opted for a lumpectomy. The lumpectomy was performed on 3518. The lumpectomy revealed biopsy cavity with no residual disease. She did not have any radiation therapy. Genetic testing was done which was normal She has been on Arimidex since January 2019 and is tolerating it well. She had a bilateral mammogram in [id number] which was benign BIRADS 2. This was personally reviewed. She is not complaining of any new lumps masses or nodules of concern in either breast. Patient had been noting some frequency of urination she has been seen by urology and no definite lesion of concern noted, she was evaluated by urology and horticultural specialty grower and nothing of concern noted. The cyst was being followed by urology. Note from DR. Hu 08-31-22 reviewed. 05-25-23 She is not complaining of any new lumps masses or nodules of concern in either breast. She is tolerating the aromatase inhibitor without any difficulty. Is having cataract surgery next week. Family History: 1. patient: thyroid cancer 2. sister: leukemia at 73 3. mother: thyroid cancer 4. sister: breast cancer Hormonal History: menarche: 15 : 3, 3 children, twins one miscarrage first at 31, breast fed: yes menopause: 43 hysterctomy for bleeding, no cancer BCP: none hormones: 10 years, prempro Past Surgical History: 1. total thyroidectomy 2. 2 c-sections 3. gallbladder 4. partial hysterectomy 5. breast biopsy times two left 6. Left breast lumpectomy Past Medical History: 1. rheumatoid artritis 2. CREST syndrome 3. PUD Social History: smoke: none alcohol: none drugs: none - Constitutional Constitutional: Denies chills, Denies fever - EENT Comment: migraines in past now stopped Eyes: denies blurred vision, denies pain Ears: bilateral: tinnitus, deny: decreased hearing Ears, nose, mouth and throat: Reports headache, Denies sore throat - Breasts Breasts: bilateral: as per HPI - Cardiovascular Cardiovascular: Denies chest pain, Denies shortness of breath - Respiratory Respiratory: Denies cough - Gastrointestinal Comment: esophogeal spasm, PUD Gastrointestinal: Reports constipation - Genitourinary (Female) Genitourinary: Denies dysuria, Denies hematuria - Menstruation Menstruation: Reports post hysterectomy - Musculoskeletal Comment: rheumatoid arthritis - Neurological Comment: telangectasia - Psychiatric Psychiatric: Denies anxiety, Denies depression - Endocrine Comment: thyroid cancer, parathroids removed with the surgery Endocrine: Denies fatigue, Denies weight change - Hematologic/Lymphatic Comment: none - Allergic/Immunologic Allergic/Immunologic: Reports as per HPI Objective - Vital Signs Vital signs: Vital Signs Temp 98.3 F 05/25/23 13:17 Pulse 72 05/25/23 13:17 Resp 16 05/25/23 13:17 BP 112/71 05/25/23 13:17 Pulse Ox 94 L 05/25/23 13:17 FiO2 Intake & Output 05/24/23 05/25/23 05/25/23 18:59 06:59 18:59 Weight 69.4 kg - Constitutional General appearance: Present: cooperative - EENT Eyes: Present: EOMI ENT: Present: hearing grossly normal - Neck Neck: Present: normal ROM - Respiratory Respiratory: bilateral: CTA - Cardiovascular Heart sounds: normal: S1, S2 - Integumentary Integumentary: Present: normal turgor - Musculoskeletal Musculoskeletal: Present: gait normal - Psychiatric Psychiatric: Present: A&O x's 3, appropriate affect, intact judgment & insight - Additional findings Additional findings: Breast Exam: BRA: 38C inspection: well healed scar left breast from prior surgery Outpatient: Right breast: Multi-positional exam fibrocystic changes no dominant masses or nodules of concern Right axilla: No adenopathy of concern Left breast: Multi-positional exam postop changes no dominant masses or nodules of concern, well healed scar left breast Left axilla: No adenopathy of concern Assessment and Plan Assessment: Impression: 1. rheumatoid artritis 2. CREST syndrome 3. PUD 4. left breast stage 0 cancer, no evidence of recurrence Plan: 1. continue arimidex 2. bilateral mammogram October 2023 3. follow up in 6 months CC: Dr. Codey Price
== END ==
LOC: WWCWWP 12:44
PROVIDERS: ATTEND Surgery
DX: C50.912 Malignant neoplasm of unspecified site of left female breast (principal); M06.9 Rheumatoid arthritis, unspecified; M34.1 CR(E)ST syndrome; Z80.3 Family history of malignant neoplasm of breast; Z85.3 Personal history of malignant neoplasm of breast; Z87.11 Personal history of peptic ulcer disease; Z79.811 Long term (current) use of aromatase inhibitors; Z88.5 Allergy status to narcotic agent; Z88.8 Allergy status to other drugs, medicaments and biological substances

== ENCOUNTER → 2023-09-27 | Outpatient (CLI) | payer MEDICARE ==
--- NOTE | 2023-09-27 08:58 | MM ---
Reason for Exam: Hx of breast cancer, conservation therapy. Last screening mammogram was performed 12 month(s) ago. Patient History: Menarche at age 13. First Full-Term at age 31. Late child-bearing (after 31). Hysterectomy at age 43. Postmenopausal. Patient has history of breast feeding. Other cancer, age 32. Breast cancer, left, age 68. Estrogen for 10 years from age 44 until age 54. 10/20/2006, Lumpectomy on the Left side. 12/18/2018, Lumpectomy on the Left side. 12/18/2018, Malignant Core Biopsy on the left side. 11/27/2018, Malignant Core Biopsy on the left side. 11/27/2018, Malignant Core Biopsy on the left side. 07/02/2001, Benign Excisional Biopsy on the left side. Paternal cousin had breast cancer. Paternal cousin had breast cancer. Prior Study Comparison: 09/20/2017 Bilateral Screening Mammogram, [facility]. 10/24/2018 Bilateral Screening Mammogram, [facility]. 10/31/2018 Left Diagnostic Mammogram, [facility]. 07/03/2019 Left Diagnostic Mammogram, [facility]. 09/30/2020 Bilateral Diagnostic Mammogram, [facility]. 10/04/2021 Bilateral Diagnostic Mammogram, [facility]. 09/29/2022 Bilateral MG 3D diag mammo w/cad [facility], [facility]. Tissue Density: There are scattered fibroglandular densities. Findings: Analyzed By CAD. Pattern appears stable. Multiple surgical clips from a lumpectomy left breast. There is some focal asymmetry in this region. No significant interval change from prior examinations. Chronic nodularities in the outer right breast. No suspicious groups of microcalcifications, spiculated or lobular masses, architectural distortion or other secondary signs of malignancy are mammographically apparent. Overall Assessment: Benign, BI-RAD 2 Management: Screening Mammogram of both breasts in 1 year. A negative mammogram report should not preclude additional follow up of suspicious palpable abnormalities. Patient should continue monthly self breast exam. A clinical breast exam by your physician is recommended on an annual basis and results should be correlated with mammographic findings. Electronically signed and approved by: Kyree Wilson D.O. Radiologis
--- NOTE | 2023-09-27 09:40 | P.PN ---
Subjective Progress Note Date: 09/27/23 stage 0 left breast cancer 2018 Skylar is a 73-year-old white female who presented on 11-15-18 with a routine mammogram revealing an area of concern in the left breast. There were suspicious grouped fine calcifications in the upper middle breast 6 cm from the nipple. This area was believed to be changed when compared to prior studies. Additionally an ultrasound was performed and on the ultrasound a 0.6 cm lesion was identified at the 12 o'clock position which was at an area of palpable change and therefore biopsy was recommended of this site as well. The patient had not felt anything of concern in her breast prior to the radiographs. She underwent core biopsy of 2 areas of concern in the left breast on . 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 Biopsy of the lesion at 12:00 was benign breast tissue with stromal fibrosis. After discussion the patient opted for a lumpectomy. The lumpectomy was performed on 3518. The lumpectomy revealed biopsy cavity with no residual disease. She did not have any radiation therapy. Genetic testing was done which was normal She has been on Arimidex since January 2019 and is tolerating it well. She had a bilateral mammogram in which was benign BIRADS 2. This was personally reviewed. She is not complaining of any new lumps masses or nodules of concern in either breast. Patient had been noting some frequency of urination she has been seen by urology and no definite lesion of concern noted, she was evaluated by urology and obstetrician and gynaecologist and nothing of concern noted. The cyst was being followed by urology. Note from DR. Hu 08-31-22 reviewed. 05-25-23 She is not complaining of any new lumps masses or nodules of concern in either breast. She is tolerating the aromatase inhibitor without any difficulty. Is having cataract surgery next week. 09-27-23 Bilateral mammogram 09-27-23 BIRAD 2. She is not complaining of any new lumps masses or nodules of concern in either breast. She continues on the aromatase inhibitor Arimidex. She recently recovered from COVID two weeks out. She had cataract surgery on her left eye and is waiting on her right eye Family History: 1. patient: thyroid cancer 2. sister: leukemia at 73 3. mother: thyroid cancer 4. sister: breast cancer Hormonal History: menarche: 15 : 3, 3 children, twins one miscarrage first at 31, breast fed: yes menopause: 43 hysterctomy for bleeding, no cancer BCP: none hormones: 10 years, prempro Past Surgical History: 1. total thyroidectomy 2. 2 c-sections 3. gallbladder 4. partial hysterectomy 5. breast biopsy times two left 6. Left breast lumpectomy 7. cataract surgery Past Medical History: 1. rheumatoid artritis 2. CREST syndrome 3. PUD Social History: smoke: none alcohol: none drugs: none - Constitutional Constitutional: Denies chills, Denies fever - EENT Comment: migraines in past now stopped Eyes: denies blurred vision, denies pain Ears: bilateral: tinnitus, deny: decreased hearing Ears, nose, mouth and throat: Reports headache, Denies sore throat - Breasts Breasts: bilateral: as per HPI - Cardiovascular Cardiovascular: Denies chest pain, Denies shortness of breath - Respiratory Respiratory: Denies cough - Gastrointestinal Comment: esophogeal spasm, PUD Gastrointestinal: Reports constipation - Genitourinary (Female) Genitourinary: Denies dysuria, Denies hematuria - Menstruation Menstruation: Reports post hysterectomy - Musculoskeletal Comment: rheumatoid arthritis - Neurological Comment: telangectasia - Psychiatric Psychiatric: Denies anxiety, Denies depression - Endocrine Comment: thyroid cancer, parathroids removed with the surgery Endocrine: Denies fatigue, Denies weight change - Hematologic/Lymphatic Comment: none - Allergic/Immunologic Allergic/Immunologic: Reports as per HPI Objective - Vital Signs Vital signs: Intake & Output 09/26/23 09/27/23 09/27/23 18:59 06:59 18:59 Weight 65.771 kg - Constitutional General appearance: Present: cooperative - EENT Eyes: Present: EOMI ENT: Present: hearing grossly normal - Neck Neck: Present: normal ROM - Respiratory Respiratory: bilateral: CTA - Cardiovascular Heart sounds: normal: S1, S2 - Integumentary Integumentary: Present: normal turgor - Musculoskeletal Musculoskeletal: Present: gait normal - Psychiatric Psychiatric: Present: A&O x's 3, appropriate affect, intact judgment & insight - Additional findings Additional findings: Breast Exam: BRA: 38C inspection: well healed scar left breast from prior surgery Outpatient: Right breast: Multi-positional exam fibrocystic changes no dominant masses or nodules of concern Right axilla: No adenopathy of concern Left breast: Multi-positional exam postop changes no dominant masses or nodules of concern, well healed scar left breast Left axilla: No adenopathy of concern Assessment and Plan Assessment: Impression: 1. rheumatoid artritis 2. CREST syndrome 3. PUD 4. left breast stage 0 cancer, no evidence of recurrence Plan: 1. continue arimidex 2. bilateral September 2024 with appointment 3. follow up in one year, sooner if any questions CC: Dr. Codey Price
[2023-09-27 09:47] VITALS: BP 123/81; PULSE 73; RESP 18; TEMP 98.2
== END ==
LOC: WWCWWP 08:22
PROVIDERS: ATTEND Surgery
DX: Z12.31 Encounter for screening mammogram for malignant neoplasm of breast (principal); C50.912 Malignant neoplasm of unspecified site of left female breast; M06.9 Rheumatoid arthritis, unspecified; M34.1 CR(E)ST syndrome; K27.9 Peptic ulcer, site unspecified, unspecified as acute or chronic, without hemorrhage or perforation; Z90.711 Acquired absence of uterus with remaining cervical stump; Z98.890 Other specified postprocedural states; Z78.0 Asymptomatic menopausal state; Z80.3 Family history of malignant neoplasm of breast; Z87.11 Personal history of peptic ulcer disease; Z90.12 Acquired absence of left breast and nipple; Z88.5 Allergy status to narcotic agent; Z88.3 Allergy status to other anti-infective agents; Z79.811 Long term (current) use of aromatase inhibitors
CPT/HCPCS: 77066; G0279; 77062

== ENCOUNTER → 2023-09-27 | Outpatient (CLI) | payer MEDICARE | LOC: RADMAMWWP 10:00 | PROVIDERS: ATTEND Surgery | DX: Z53.9 Procedure and treatment not carried out, unspecified reason (principal) ==

== ENCOUNTER → 2024-01-26 | Outpatient (CLI) | payer MEDICARE ==
[2024-01-26 15:43] LABS: Basophils # (A) 0.07 X 10*3/uL (0.00-0.10); Basophils % (A) 1.2 %; Eosinophils # (A) 0.24 X 10*3/uL (0.04-0.35); Eosinophils % (A) 4.1 %; HCT 49.5 % (37.2-46.3); HGB 16.4 g/dL (12.0-15.0); Lymphocytes # (A) 0.77 X 10*3/uL (0.90-5.00); Lymphocytes % (A) 13.1 %; MCH 29.9 pg (27.0-32.0); MCHC 33.1 g/dL (32.0-37.0); MCV 90.3 FL (80.0-97.0); Mean Platelet Volume 11.4 FL (9.5-12.2); Monocytes # (A) 0.77 X 10*3/uL (0.20-1.00); Monocytes % (A) 13.1 %; NRBC Per 100 WBC 0 X 10*3/uL (0.00-0.01); Neutrophils # (A) 4.03 X 10*3/uL (1.80-7.70); Neutrophils % (A) 68.3 %; Platelet Count 224 X 10*3/uL (140-440); RBC 5.48 X 10*6/uL (4.10-5.20); RDW 13.8 % (11.5-14.5); WBC 5.89 X 10*3/uL (4.50-10.00)
[2024-01-26 16:00] LABS: Erythrocyte Sedimentation Rate 7 mm/Hr (0-30)
[2024-01-26 16:56] LABS: ALT 23 U/L (8-44); AST 27 U/L (13-35); Blood Urea Nitrogen 20.7 mg/dL (9.0-27.0)
== END | disposition home or self-care (01) ==
LOC: LABWHC1 10:47
PROVIDERS: ATTEND Internal Medicine Rheumatology
DX: M25.50 Pain in unspecified joint (principal); E55.9 Vitamin D deficiency, unspecified; M06.4 Inflammatory polyarthropathy; Z79.01 Long term (current) use of anticoagulants
CPT/HCPCS: 36415; 82306; 82565; 84450; 84460; 84520; 85025; 85652; 86140

== ENCOUNTER → 2024-01-30 | Outpatient (CLI) | payer MEDICARE ==
[2024-01-30 16:36] LABS: T4, Free (Free Thyroxine) 0.82 ng/dL (0.80-1.80)
== END | disposition home or self-care (01) ==
LOC: LABWHC1 12:03
PROVIDERS: ATTEND Internal Medicine
DX: C73 Malignant neoplasm of thyroid gland (principal); E55.9 Vitamin D deficiency, unspecified; E89.0 Postprocedural hypothyroidism
CPT/HCPCS: 36415; 82306; 84432; 84439; 84443; 86800

== ENCOUNTER → 2024-03-01 | Outpatient (CLI) | payer MEDICARE ==
--- NOTE | 2024-03-01 13:55 | P.PN ---
Subjective Progress Note Date: 03/01/24 03-01-24 stage 0 left breast cancer 2018 Skylar is a 73-year-old white female who presented on 11-15-18 with a routine mammogram revealing an area of concern in the left breast. There were suspicious grouped fine calcifications in the upper middle breast 6 cm from the nipple. This area was believed to be changed when compared to prior studies. Additionally an ultrasound was performed and on the ultrasound a 0.6 cm lesion was identified at the 12 o'clock position which was at an area of palpable ch crystal and therefore biopsy was recommended of this site as well. The patient had not felt anything of concern in her breast prior to the radiographs. She underwent core biopsy of 2 areas of concern in the left breast on . 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 Biopsy of the lesion at 12:00 was benign breast tissue with stromal fibrosis. After discussion the patient opted for a lumpectomy. The lumpectomy was performed on 3518. The lumpectomy revealed biopsy cavity with no residual disease. She did not have any radiation therapy. Genetic testing was done which was normal She has been on Arimidex since January 2019 and is tolerating it well. She had a bilateral mammogram in which was benign BIRADS 2. This was personally reviewed. She is not complaining of any new lumps masses or nodules of concern in either breast. 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 The cyst was being followed by urology. 05-25-23 She is not complaining of any new lumps masses or nodules of concern in either breast. She is tolerating the aromatase inhibitor without any difficulty. Is having cataract surgery next week. 09-27-23 Bilateral mammogram 09-27-23 BIRAD 2. She is not complaining of any new lumps masses or nodules of concern in either breast. She continues on the aromatase inhibitor Arimidex. She recently recovered from COVID two weeks out. She had cataract surgery on her left eye and is waiting on her right eye 03-01-24 Skylar is a 73 year old female status post left breast lumpectomy 12-28-18 for a 2 mm DCIS in 2019. The biopsy cavity was removed with no residual tumor. She did not have radiation therapy, but did have aromatase inhibitor. She feels an area of nodularity in the left breast on the chest wall for about 6 months, it has not changed, She is still taking arimodex. it is not painful. Family History: 1. patient: thyroid cancer 2. sister: leukemia at 73 3. mother: thyroid cancer 4. sister: breast cancer Hormonal History: menarche: 15 : 3, 3 children, twins one miscarrage first at 31, breast fed: yes menopause: 43 hysterctomy for bleeding, no cancer BCP: none hormones: 10 years, prempro Past Surgical History: 1. total thyroidectomy 2. 2 c-sections 3. gallbladder 4. partial hysterectomy 5. breast biopsy times two left 6. Left breast lumpectomy 7. cataract surgery Past Medical History: 1. rheumatoid artritis 2. CREST syndrome 3. PUD Social History: smoke: none alcohol: none drugs: none - Constitutional Constitutional: Denies chills, Denies fever - EENT Comment: migraines in past now stopped Eyes: denies blurred vision, denies pain Ears: bilateral: tinnitus, deny: decreased hearing Ears, nose, mouth and throat: Reports headache, Denies sore throat - Breasts Breasts: bilateral: as per HPI - Cardiovascular Cardiovascular: Denies chest pain, Denies shortness of breath - Respiratory Respiratory: Denies cough - Gastrointestinal Comment: esophogeal spasm, PUD Gastrointestinal: Reports constipation - Genitourinary (Female) Genitourinary: Denies dysuria, Denies hematuria - Menstruation Menstruation: Reports post hysterectomy - Musculoskeletal Comment: rheumatoid arthritis - Neurological Comment: telangectasia - Psychiatric Psychiatric: Denies anxiety, Denies depression - Endocrine Comment: thyroid cancer, parathroids removed with the surgery Endocrine: Denies fatigue, Denies weight change - Hematologic/Lymphatic Comment: none - Allergic/Immunologic Allergic/Immunologic: Reports as per HPI Objective - Vital Signs Vital signs: Vital Signs Temp 98 F 03/01/24 13:19 Pulse 90 03/01/24 13:19 Resp 17 03/01/24 13:19 BP 149/79 03/01/24 13:19 Pulse Ox 97 03/01/24 13:19 FiO2 Intake & Output 02/29/24 03/01/24 03/01/24 18:59 06:59 18:59 Weight 69.4 kg - Constitutional General appearance: Present: cooperative - EENT Eyes: Present: EOMI ENT: Present: hearing grossly normal - Neck Neck: Present: normal ROM - Respiratory Respiratory: bilateral: CTA - Cardiovascular Heart sounds: normal: S1, S2 - Integumentary Integumentary: Present: normal turgor - Musculoskeletal Musculoskeletal: Present: gait normal - Psychiatric Psychiatric: Present: A&O x's 3, appropriate affect, intact judgment & insight - Additional findings Additional findings: Breast Exam: BRA: 38C inspection: well healed scar left breast from prior surgery palpation: Right breast: Multi-positional exam fibrocystic changes no dominant masses or nodules of concern Right axilla: No adenopathy of concern Left breast: Multi-positional exam postop changes no dominant masses or nodules of concern, well healed scar left breastat approximately the 1 o'clock position higher on the chest wall there is a area of nodularity which appears to be cordlike in nature, it is most likely consistent with fibrofatty subcutaneous tissue Left axilla: No adenopathy of concern Assessment and Plan Assessment: Impression: 1. rheumatoid artritis 2. CREST syndrome 3. PUD 4. left breast stage 0 cancer, no evidence of recurrence Left chest wall increased nodularity in approximately the 1 o'clock position superior to the area of the breast tissue Plan: 1. Stopped Arimidex in January 2024 2. bilateral September 2024 with appointment 3. ultrasound left chest wall of area of palpable abnormality 4. FNA of area of concern left chest wall CC: Dr. Codey Price
[2024-03-01 14:21] VITALS: BP 149/79; PULSE 90; RESP 17; TEMP 98
== END ==
LOC: WWCWWP 12:42
PROVIDERS: ATTEND Surgery
DX: R92.1 Mammographic calcification found on diagnostic imaging of breast (principal); R92.8 Other abnormal and inconclusive findings on diagnostic imaging of breast; C50.412 Malignant neoplasm of upper-outer quadrant of left female breast; M34.1 CR(E)ST syndrome; K27.9 Peptic ulcer, site unspecified, unspecified as acute or chronic, without hemorrhage or perforation; M06.9 Rheumatoid arthritis, unspecified; Z86.16 Personal history of COVID-19; Z98.890 Other specified postprocedural states; Z98.41 Cataract extraction status, right eye; Z98.42 Cataract extraction status, left eye; Z80.3 Family history of malignant neoplasm of breast; Z88.5 Allergy status to narcotic agent; Z88.8 Allergy status to other drugs, medicaments and biological substances

== ENCOUNTER → 2024-03-01 | Outpatient (CLI) | payer MEDICARE ==
--- NOTE | 2024-03-01 15:00 | USB ---
Reason for Exam: Clinical finding. Patient History: Menarche at age 13. First Full-Term at age 31. Late child-bearing (after 31). Hysterectomy at age 43. Postmenopausal. Patient has history of breast feeding. Other cancer, age 32. Breast cancer, left, age 68. Estrogen for 10 years from age 44 until age 54. 10/20/2006, Lumpectomy on the Left side. 12/18/2018, Lumpectomy on the Left side. 12/18/2018, Malignant Core Biopsy on the left side. 11/27/2018, Malignant Core Biopsy on the left side. 11/27/2018, Malignant Core Biopsy on the left side. 07/02/2001, Benign Excisional Biopsy on the left side. Paternal cousin had breast cancer. Paternal cousin had breast cancer. Technique: Method: Targeted. Prior Study Comparison: 10/04/2021 Bilateral Diagnostic Mammogram, [facility]. 09/29/2022 Bilateral MG 3D diag mammo w/cad [facility], [facility]. 09/27/2023 Bilateral MG 3D diag mammo w/cad [facility], [facility]. Findings: The area of palpable concern of the left breast was scanned. Targeted ultrasound left breast 11:00 position, 13 cm from the nipple at the patient directed palpable site. No solid or cystic lesion is identified here. Normal breast fat lobules are visualized. Overall Assessment: Benign, BI-RAD 2 Management: Diagnostic Mammogram of both breasts in 7 months. In time for the patient's annual exam. Further clinical management of any suspicious palpable areas. Results were given to the patient verbally at the time of exam. Electronically signed and approved by: Bob Vargas M.D. Radiologist
== END | disposition home or self-care (01) ==
LOC: RADUSWWP 14:01
PROVIDERS: ATTEND Surgery
DX: N63.0 Unspecified lump in unspecified breast (principal); Z78.0 Asymptomatic menopausal state; Z80.3 Family history of malignant neoplasm of breast

== ENCOUNTER → 2024-03-27 | Outpatient (CLI) | payer MEDICARE ==
[2024-03-27 08:06] VITALS: BP 142/84; PULSE 71; RESP 16; TEMP 97.8
--- NOTE | 2024-03-27 08:19 | P.PN ---
Subjective Progress Note Date: 03/27/24 Principal diagnosis: Nodule chest wall Subjective Progress Note Date: 03-27-24 stage 0 left breast cancer 2018 Skylar is a 73-year-old white female who presented on 11-15-18 with a routine mammogram revealing an area of concern in the left breast. There were suspicious grouped fine calcifications in the upper middle breast 6 cm from the nipple. This area was believed to be changed when compared to prior studies. Additionally an ultrasound was performed and on the ultrasound a 0.6 cm lesion was identified at the 12 o'clock position which was at an area of palpable change and therefore biopsy was recommended of this site as well. The patient had not felt anything of concern in her breast prior to the radiographs. She underwent core biopsy of 2 areas of concern in the left breast on . 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 Biopsy of the lesion at 12:00 was benign breast tissue with stromal fibrosis. After discussion the patient opted for a lumpectomy. The lumpectomy was pe rformed on 3518. The lumpectomy revealed biopsy cavity with no residual disease. She did not have any radiation therapy. Genetic testing was done which was normal She has been on Arimidex since January 2019 and is tolerating it well. She had a bilateral mammogram in which was benign BIRADS 2. This was personally reviewed. She is not complaining of any new lumps masses or nodules of concern in either breast, planing of some nodularity on the left chest wall. This is remote from the site of her prior lumpectomy. 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 The cyst was being followed by urology. Ultrasound was performed of the left chest wall at the site of palpable change and no lesion of concern was identified. Secondary to the fact that it is palpable however the patient is going to undergo an FNA of this area. Family History: 1. patient: thyroid cancer 2. sister: leukemia at 73 3. mother: thyroid cancer 4. sister: breast cancer Hormonal History: menarche: 15 : 3, 3 children, twins one miscarrage first at 31, breast fed: yes menopause: 43 hysterctomy for bleeding, no cancer BCP: none hormones: 10 years, prempro Past Surgical History: 1. total thyroidectomy 2. 2 c-sections 3. gallbladder 4. partial hysterectomy 5. breast biopsy times two left 6. Left breast lumpectomy 7. cataract surgery Past Medical History: 1. rheumatoid artritis 2. CREST syndrome 3. PUD Social History: smoke: none alcohol: none drugs: none - Constitutional Constitutional: Denies chills, Denies fever - EENT Comment: migraines in past now stopped Eyes: denies blurred vision, denies pain Ears: bilateral: tinnitus, deny: decreased hearing Ears, nose, mouth and throat: Reports headache, Denies sore throat - Breasts Breasts: bilateral: as per HPI - Cardiovascular Cardiovascular: Denies chest pain, Denies shortness of breath - Respiratory Respiratory: Denies cough - Gastrointestinal Comment: esophogeal spasm, PUD Gastrointestinal: Reports constipation - Genitourinary (Female) Genitourinary: Denies dysuria, Denies hematuria - Menstruation Menstruation: Reports post hysterectomy - Musculoskeletal Comment: rheumatoid arthritis - Neurological Comment: telangectasia - Psychiatric Psychiatric: Denies anxiety, Denies depression - Endocrine Comment: thyroid cancer, parathroids removed with the surgery Endocrine: Denies fatigue, Denies weight change - Hematologic/Lymphatic Comment: none - Allergic/Immunologic Allergic/Immunologic: Reports as per HPI Breast Exam from 03-01-24; BRA: 38C inspection: well healed scar left breast from prior surgery palpation: Right breast: Multi-positional exam fibrocystic changes no dominant masses or nodules of concern Right axilla: No adenopathy of concern Left breast: Multi-positional exam postop changes no dominant masses or nodules of concern, well healed scar left breast at approximately the 1 o'clock position higher on the chest wall there is a area of nodularity which appears to be cord like in nature, it is most likely consistent with fibrofatty subcutaneous tissue Left axilla: No adenopathy of concern Plan Cordlike nodularity left chest wall at 1 o'clock position Plan: FNA of area of concern Following informed consent the area of concern was prepped using alcohol, a 22- gauge needle on a 10 cc syringe multiple specimens were obtained and sent for evaluation. If this is benign which is what we suspected will be then she will follow-up in September 2024 with bilateral mammogram. If she has any questions or concerns she will follow-up sooner. CC: Dr. Codey Price Objective - Vital Signs Vital signs: Vital Signs Temp 97.8 F 03/27/24 08:05 Pulse 71 03/27/24 08:05 Resp 16 03/27/24 08:05 BP 142/84 03/27/24 08:05 Pulse Ox 96 03/27/24 08:05 FiO2 Intake & Output 03/26/24 03/27/24 03/27/24 18:59 06:59 18:59 Weight 68.039 kg
== END ==
LOC: WWCWWP 07:58
PROVIDERS: ATTEND Surgery
DX: R92.1 Mammographic calcification found on diagnostic imaging of breast (principal); C50.912 Malignant neoplasm of unspecified site of left female breast; Z80.3 Family history of malignant neoplasm of breast; Z88.8 Allergy status to other drugs, medicaments and biological substances; Z88.5 Allergy status to narcotic agent

== ENCOUNTER → 2024-03-29 | Outpatient (CLI) | payer MEDICARE ==
--- NOTE | 2024-03-31 17:22 | US ---
EXAMINATION TYPE: US carotid duplex BILAT DATE OF EXAM: 03/29/2024 COMPARISON: NONE CLINICAL INDICATION: Female, 73 years old with history of I65.29 OCCLUSION AND STENOSIS OF UNSPECIFIE D CAROT; Stenosis TECHNIQUE: Carotid duplex ultrasound examination. Indirect Doppler criteria was utilized. FINDINGS: EXAM MEASUREMENTS: RIGHT: Peak Systolic Velocity (PSV) cm/sec ----- Right CCA: 69.5 ----- Right ICA: 89.6 ----- Right ECA: 119 ICA/CCA ratio: 1.3 RIGHT: End Diastole cm/sec ----- Right CCA: 10.4 ----- Right ICA: 24.0 ----- Right ECA: 11.0 LEFT: Peak Systolic Velocity (PSV) cm/sec ----- Left CCA: 72.9 ----- Left ICA: 88.4 ----- Left ECA: 185 ICA/CCA ratio: 1.2 LEFT: End Diastole cm/sec ----- Left CCA: 14.3 ----- Left ICA: 21.2 ----- Left ECA: 5.1 VERTEBRALS (direction of flow): Right Vertebral: Antegrade Left Vertebral: Antegrade Rhythm: Normal INSPECTOR FILTER TIP NOTES: Elevated velocities left ECA, otherwise no significant stenosis visualized IMPRESSION: 1. No ultrasound evidence for hemodynamically significant stenosis of the bilateral visualized inter nal carotid arteries. 2. Mild proximal stenosis of the left ECA suggested. Criteria for Assigning % of Stenosis / Diameter reduction (Estimation based on the indirect measurements of the internal carotid artery velocities (ICA PSV). 1. Normal (no stenosis)=ICA PSV < 125 cm/s: ratio < 2.0: ICA EDV<40 cm/s. 2. Less than 50% stenosis=ICA PSV < 125 cm/s: ratio < 2.0: ICA EDV<40 cm/s. 3. 50 to 69% stenosis=ICA PSV of 125 to 230 cm/s: ration 2.0 ? 4.0: ICA EDV 40-100 cm/s. 4. Greater than 70% stenosis to near occlusion= ICA PSV > 230 cm/s: ratio > 4.0: ICA EDV > 100 cm/s. 5. Near occlusion= ICA PSV velocities may be low or undetectable: variable ratio and ICA EDV. 6. Total occlusion=unable to detect flow.
== END | disposition home or self-care (01) ==
LOC: RADUSWWP 07:12
PROVIDERS: ATTEND Family Medicine
DX: I65.22 Occlusion and stenosis of left carotid artery (principal)
CPT/HCPCS: 93880

== ENCOUNTER → 2024-09-30 | Outpatient (CLI) | payer MEDICARE ==
--- NOTE | 2024-09-30 10:21 | MM ---
Reason for Exam: Hx of breast cancer, conservation therapy. Last screening mammogram was performed 12 month(s) ago. Patient History: Menarche at age 13. First Full-Term at age 31. Late child-bearing (after 31). Hysterectomy at age 43. Postmenopausal. Patient has history of breast feeding. Other cancer, age 32. Breast cancer, left, age 68. Estrogen for 10 years from age 44 until age 54. 10/20/2006, Lumpectomy on the Left side. 12/18/2018, Lumpectomy on the Left side. 12/18/2018, Malignant Core Biopsy on the left side. 11/27/2018, Malignant Core Biopsy on the left side. 11/27/2018, Malignant Core Biopsy on the left side. 07/02/2001, Benign Excisional Biopsy on the left side. Paternal cousin had breast cancer, age 50. Paternal cousin had breast cancer, age 55. Tissue Density: The breasts are heterogeneously dense, which may obscure small masses. Findings: Analyzed By CAD. Postoperative changes of left-sided lumpectomy Without recurrent mass. No suspicious calcifications within either breast. Overall Assessment: Benign, BI-RAD 2 Management: Diagnostic Mammogram of both breasts in 1 year. . Results were given to the patient verbally at the time of exam. Patient should continue monthly self-breast exams. A clinical breast exam by your physician is recommended on an annual basis. This exam should not preclude additional follow-up of suspicious palpable abnormalities. Note on Nuvia scores and lifetime risk: 1. A Unvia score greater than 3% is considered moderate risk. If this is the case, consider specialist referral to assess eligibility for a risk reducing agent. 2. If overall lifetime risk for the development of breast cancer is 20% or higher, the patient may qualify for future screening with alternating mammogram and breast MRI. [facility], , 09/30/2024 10:18 AM. Electronically signed and approved by: Froilan Dexter M.D. Radiologis
--- NOTE | 2024-09-30 11:07 | XR ---
EXAMINATION TYPE: XR chest 2V DATE OF EXAM: 09/30/2024 10:40 AM COMPARISON: Chest radiographs from 10/01/2019 CLINICAL INDICATION: Female, 74 years old with history of R05.3 PERSISTANT COUGH; TECHNIQUE: XR chest 2V Frontal and lateral views of the chest. FINDINGS: Lungs/Pleura: There is no evidence of pleural effusion, focal consolidation, or pneumothorax. Pulmonary vascularity: Unremarkable. Heart/mediastinum: Cardiomediastinal silhouette is unremarkable. Musculoskeletal: No acute osseous pathology. IMPRESSION: No acute cardiopulmonary disease/process. [facility], , 09/30/2024 11:04 AM
== END | disposition home or self-care (01) ==
LOC: RADMAMWWP 09:47
PROVIDERS: ATTEND Surgery
DX: R92.333 Mammographic heterogeneous density, bilateral breasts (principal); R05.3 Chronic cough; Z85.3 Personal history of malignant neoplasm of breast; Z78.0 Asymptomatic menopausal state; Z80.3 Family history of malignant neoplasm of breast
CPT/HCPCS: 71046; 77066; G0279; 77062

== ENCOUNTER → 2024-10-03 | Outpatient (CLI) | payer MEDICARE ==
[2024-10-03 10:28] VITALS: BP 144/84; PULSE 79; RESP 16; TEMP 97.9
--- NOTE | 2024-10-03 10:50 | P.PN ---
Subjective Progress Note Date: 10/03/24 Principal diagnosis: DCIS left breast Subjective Progress Note Date: 10-03-24 Principal diagnosis: Subjective Progress Note Date: 03-27-24 stage 0 left breast cancer 2019 Skylar is a 74-year-old white female who presented on 11-15-18 with a routine mammogram revealing an area of concern in the left breast. There were suspicious grouped fine calcifications in the upper middle breast 6 cm from the nipple. This area was believed to be changed when compared to prior studies. Additionally an ultrasound was performed and on the ultrasound a 0.6 cm lesion was identified at the 12 o'clock position which was at an area of palpable change and therefore biopsy was recommended of this site as well. The patient had not felt anything of concern in her breast prior to the radiographs. She underwent core biopsy of 2 areas of concern in the left breast on . 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 Biopsy of the lesion at 12:00 was benign breast tissue with stromal fibrosis. After discussion the patient opted for a lumpectomy. The lumpectomy was performed on 3518. The lumpectomy revealed biopsy cavity with no residual disease. She did not have any radiation therapy. Genetic testing was done which was normal She has been on Arimidex since January 2019 and is tolerating it well. She had a bilateral mammogram in which was benign BIRADS 2. This was personally reviewed. She is not complaining of any new lumps masses or nodules of concern in either breast, ON her last visit she was complaning of some nodularity on the left chest wall. This was remote from the site of her prior lumpectomy. Ultrasound was performed of the left chest wall at the site of palpable change and no lesion of concern was identified. Secondary to the fact that it is palpable however the patient is going to undergo an FNA of this area. FNA of thickened area left chest wall performed on 03-27-2024. Pathology fragments of fibroadipose tissue with focally favored fat necrosis. The patient is doing well she was called with the results and will follow-up at approximately 6 months. 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 Family History: 1. patient: thyroid cancer 2. sister: leukemia at 73 3. mother: thyroid cancer 4. sister: breast cancer Hormonal History: menarche: 15 : 3, 3 children, twins one miscarrage first at 31, breast fed: yes menopause: 43 hysterctomy for bleeding, no cancer BCP: none hormones: 10 years, prempro Past Surgical History: 1. total thyroidectomy 2. 2 c-sections 3. gallbladder 4. partial hysterectomy 5. breast biopsy times two left 6. Left breast lumpectomy 7. cataract surgery Past Medical History: 1. rheumatoid artritis 2. CREST syndrome 3. PUD Social History: smoke: none alcohol: none drugs: none - Constitutional Constitutional: Denies chills, Denies fever - EENT Comment: migraines in past now stopped Eyes: denies blurred vision, denies pain Ears: bilateral: tinnitus, deny: decreased hearing Ears, nose, mouth and throat: Reports headache, Denies sore throat - Breasts Breasts: bilateral: as per HPI - Cardiovascular Cardiovascular: Denies chest pain, Denies shortness of breath - Respiratory Respiratory: Denies cough - Gastrointestinal Comment: esophogeal spasm, PUD Gastrointestinal: Reports constipation - Genitourinary (Female) Genitourinary: Denies dysuria, Denies hematuria - Menstruation Menstruation: Reports post hysterectomy - Musculoskeletal Comment: rheumatoid arthritis - Neurological Comment: telangectasia - Psychiatric Psychiatric: Denies anxiety, Denies depression - Endocrine Comment: thyroid cancer, parathroids removed with the surgery Endocrine: Denies fatigue, Denies weight change - Hematologic/Lymphatic Comment: none - Allergic/Immunologic Allergic/Immunologic: Reports as per HPI Objective - Vital Signs Vital signs: Vital Signs Temp 97.9 F 10/03/24 10:26 Pulse 79 10/03/24 10:26 Resp 16 10/03/24 10:26 BP 144/84 10/03/24 10:26 Pulse Ox 97 10/03/24 10:26 FiO2 Intake & Output 10/02/24 10/03/24 10/03/24 18:59 06:59 18:59 Weight 69.4 kg - Constitutional General appearance: Present: cooperative - EENT Eyes: Present: EOMI ENT: Present: hearing grossly normal - Neck Neck: Present: normal ROM - Respiratory Respiratory: bilateral: CTA - Cardiovascular Rhythm: regular Heart sounds: normal: S1, S2 - Integumentary Integumentary: Present: normal turgor - Musculoskeletal Musculoskeletal: Present: gait normal - Psychiatric Psychiatric: Present: A&O x's 3, appropriate affect, intact judgment & insight - Additional findings Additional findings: Breast Exam from 03-01-24; BRA: 38C inspection: well healed scar left breast from prior surgery palpation: Right breast: Multi-positional exam fibrocystic changes no dominant masses or nodules of concern Right axilla: No adenopathy of concern Left breast: Multi-positional exam postop changes no dominant masses or nodules of concern, well healed scar left breast at approximately the 1 o'clock position higher on the chest wall there is a area of nodularity which is stable and was prior biopsied benign Left axilla: No adenopathy of concern Assessment and Plan Assessment: Impression Prior history of DCIS left breast 2018, no evidence of any recurrent disease Plan: Follow-up in 1 year for bilateral mammogram and examination Patient will follow-up sooner any questions or concerns CC: Dr. Codey Price
== END ==
LOC: WWCWWP 09:33
PROVIDERS: ATTEND Surgery
DX: R92.8 Other abnormal and inconclusive findings on diagnostic imaging of breast (principal); Z85.3 Personal history of malignant neoplasm of breast; Z80.3 Family history of malignant neoplasm of breast; Z88.8 Allergy status to other drugs, medicaments and biological substances; Z88.5 Allergy status to narcotic agent

== ENCOUNTER → 2024-10-04 | Outpatient (CLI) | payer MEDICARE ==
[2024-10-05 01:55] LABS: Protein, Total 6.8 g/dL (6.2-8.2)
== END | disposition home or self-care (01) ==
LOC: LABWHC1 16:24
PROVIDERS: ATTEND Psychiatry & Neurology Neurology
DX: M06.09 Rheumatoid arthritis without rheumatoid factor, multiple sites (principal); G62.9 Polyneuropathy, unspecified; Z79.899 Other long term (current) drug therapy
CPT/HCPCS: 36415; 82607; 82747; 83036; 84165; 84207; 86334

== ENCOUNTER → 2024-10-23 | Outpatient (CLI) | payer MEDICARE ==
[2024-10-23 19:51] LABS: ALT 15 U/L (8-44); AST 21 U/L (13-35); Blood Urea Nitrogen 20.4 mg/dL (9.0-27.0); Calcium 9.1 mg/dL (8.7-10.3)
[2024-10-23 20:07] LABS: Basophils # (A) 0.05 X 10*3/uL (0.00-0.10); Eosinophils # (A) 0.19 X 10*3/uL (0.04-0.35); Eosinophils % (A) 3.7 %; HCT 43.4 % (37.2-46.3); HGB 14.2 g/dL (12.0-15.0); Lymphocytes # (A) 0.88 X 10*3/uL (0.90-5.00); Lymphocytes % (A) 17.3 %; MCH 29.3 pg (27.0-32.0); MCHC 32.7 g/dL (32.0-37.0); MCV 89.5 FL (80.0-97.0); Mean Platelet Volume 11.8 FL (9.5-12.2); Monocytes # (A) 0.52 X 10*3/uL (0.20-1.00); Monocytes % (A) 10.2 %; NRBC Per 100 WBC 0 X 10*3/uL (0.00-0.01); Neutrophils # (A) 3.44 X 10*3/uL (1.80-7.70); Neutrophils % (A) 67.6 %; Platelet Count 227 X 10*3/uL (140-440); RBC 4.85 X 10*6/uL (4.10-5.20); RDW 13.1 % (11.5-14.5); WBC 5.09 X 10*3/uL (4.50-10.00)
[2024-10-23 20:22] LABS: Erythrocyte Sedimentation Rate 15 mm/Hr (0-30)
== END | disposition home or self-care (01) ==
LOC: LABWHC1 13:03
PROVIDERS: ATTEND Internal Medicine Rheumatology
DX: M34.1 CR(E)ST syndrome (principal); M25.50 Pain in unspecified joint; M81.0 Age-related osteoporosis without current pathological fracture
CPT/HCPCS: 36415; 82310; 82565; 84450; 84460; 84520; 85025; 85652; 86140

== ENCOUNTER → 2025-02-07 | Outpatient (CLI) | payer MEDICARE ==
[2025-02-07 15:54] LABS: BUN/Creat Ratio 28.75 Ratio (12.00-20.00); Calcium 9.4 mg/dL (8.7-10.3); Chloride 103 mmol/L (96-109); Glucose 83 mg/dL (70-110); Potassium 3.8 mmol/L (3.5-5.5); Sodium 143 mmol/L (135-145); T4, Free (Free Thyroxine) 1.06 ng/dL (0.80-1.80)
== END | disposition home or self-care (01) ==
LOC: LABWHC1 11:10
PROVIDERS: ATTEND Internal Medicine
DX: C73 Malignant neoplasm of thyroid gland (principal); E89.0 Postprocedural hypothyroidism; E55.9 Vitamin D deficiency, unspecified; N95.1 Menopausal and female climacteric states
CPT/HCPCS: 36415; 80048; 82306; 84439; 84443

== ENCOUNTER → 2025-03-21 | Outpatient (CLI) | payer MEDICARE ==
[2025-03-21 15:12] LABS: Basophils # (A) 0.05 X 10*3/uL (0.00-0.10); Basophils % (A) 0.9 %; Eosinophils # (A) 0.16 X 10*3/uL (0.04-0.35); Eosinophils % (A) 2.8 %; HCT 45.5 % (37.2-46.3); HGB 14.9 g/dL (12.0-15.0); Lymphocytes # (A) 0.84 X 10*3/uL (0.90-5.00); Lymphocytes % (A) 14.7 %; MCH 30.1 pg (27.0-32.0); MCHC 32.7 g/dL (32.0-37.0); MCV 91.9 FL (80.0-97.0); Mean Platelet Volume 11.7 FL (9.5-12.2); Monocytes # (A) 0.62 X 10*3/uL (0.20-1.00); Monocytes % (A) 10.9 %; NRBC Per 100 WBC 0 X 10*3/uL (0.00-0.01); Neutrophils # (A) 4.02 X 10*3/uL (1.80-7.70); Neutrophils % (A) 70.5 %; Platelet Count 226 X 10*3/uL (140-440); RBC 4.95 X 10*6/uL (4.10-5.20); RDW 13.2 % (11.5-14.5)
[2025-03-21 15:38] LABS: ALT 23 U/L (8-44); AST 30 U/L (13-35); Alkaline Phosphatase 59 U/L (41-126); BUN/Creat Ratio 22.67 Ratio (12.00-20.00); Blood Urea Nitrogen 20.4 mg/dL (9.0-27.0); Calcium 9.3 mg/dL (8.7-10.3); Carbon Dioxide 29.8 mmol/L (21.6-31.8); Chloride 104 mmol/L (96-109); Chol/HDL Ratio 3.43 Ratio; Globulin 2.1 g/dL (1.6-3.3); Glucose 84 mg/dL (70-110); LDL Cholesterol,Calculated 95.5 mg/dL (0.0-131.0); Potassium 4.2 mmol/L (3.5-5.5); Sodium 144 mmol/L (135-145); Total Bilirubin 0.4 mg/dL (0.3-1.2); Total Protein 6.1 g/dL (6.2-8.2); VLDL Calculation 15.02 mg/dL (5.00-40.00)
== END | disposition home or self-care (01) ==
LOC: LABWHC1 09:24
PROVIDERS: ATTEND Family Medicine
DX: I10 Essential (primary) hypertension (principal); E78.5 Hyperlipidemia, unspecified
CPT/HCPCS: 36415; 80053; 80061; 85025

== ENCOUNTER → 2025-04-24 | Outpatient (CLI) | payer MEDICARE ==
[2025-04-24 15:28] LABS: HCT 46.7 % (37.2-46.3); HGB 15.2 g/dL (12.0-15.0); MCH 30.2 pg (27.0-32.0); MCHC 32.5 g/dL (32.0-37.0); MCV 92.7 FL (80.0-97.0); NRBC Per 100 WBC 0 X 10*3/uL (0.00-0.01); Platelet Count 222 X 10*3/uL (140-440); RBC 5.04 X 10*6/uL (4.10-5.20); RDW 13.3 % (11.5-14.5); WBC 7.56 X 10*3/uL (4.50-10.00)
[2025-04-24 15:34] LABS: ALT 21 U/L (8-44); AST 29 U/L (13-35); Blood Urea Nitrogen 17.2 mg/dL (9.0-27.0)
[2025-04-24 16:41] LABS: Basophils # (A) 0.08 X 10*3/uL (0.00-0.10); Basophils % (A) 1.1 %; Eosinophils # (A) 0.26 X 10*3/uL (0.04-0.35); Eosinophils % (A) 3.4 %; Immature Grans, Automated 0.50 %; Lymphocytes # (A) 1.65 X 10*3/uL (0.90-5.00); Lymphocytes % (A) 21.8 %; Monocytes # (A) 0.71 X 10*3/uL (0.20-1.00); Monocytes % (A) 9.4 %; Neutrophils # (A) 4.82 X 10*3/uL (1.80-7.70); Neutrophils % (A) 63.8 %
== END | disposition home or self-care (01) ==
LOC: LABWHC1 09:07
PROVIDERS: ATTEND Internal Medicine Rheumatology
DX: M06.9 Rheumatoid arthritis, unspecified (principal); M54.50 Low back pain, unspecified; G89.29 Other chronic pain; Z79.899 Other long term (current) drug therapy
CPT/HCPCS: 36415; 82565; 84450; 84460; 84520; 85025; 85652; 86140

== ENCOUNTER → 2025-05-06 | Outpatient (CLI) | payer MEDICARE ==
--- NOTE | 2025-05-08 13:53 | CA ---
Transthoracic Echo Report Name: Skylar Hull Age: 74 Gender: F : 1950 Exam Date: 05/06/2025 16:09 Exam Location: [facility] Ht (in): 62 Wt (lb): 145 Ordering Physician: Codey Price MD Attending/Referring Phys: Codey Price MD Reports Analysis Manager Kendra Salas [facility] Procedure CPT: Indications: R60.0 LOCALIZED EDEMA, Other cardiomyopathies Cardiac Hx: Technical Quality: Good Contrast 1: Total Dose (mL): Contrast 2: Total Dose (mL): MEASUREMENTS (Male / Female) Normal Values 2D ECHO LV Diastolic Diameter PLAX 3.9 cm 4.2 - 5.9 / 3.9 - 5.3 cm LV Systolic Diameter PLAX 2.5 cm IVS Diastolic Thickness 0.9 cm 0.6 - 1.0 / 0.6 - 0.9 cm LVPW Diastolic Thickness 0.8 cm 0.6 - 1.0 / 0.6 - 0.9 cm LV Relative Wall Thickness 0.4 RV Internal Dim ED PLAX 3.0 cm LA Systolic Diameter LX 3.1 cm 3.0 - 4.0 / 2.7 - 3.8 cm LV Diastolic Volume MOD BP 50.1 cm??? 67 - 155 / 56 - 104 cm??? LV Systolic Volume MOD BP 17.8 cm??? 22 - 58 / 19 - 49 cm??? LV Ejection Fraction MOD BP 64.5 % >= 55 % LV Cardiac Index MOD BP 1377.1 cm???/min???m??? LV Diastolic Volume MOD 4C 55.2 cm??? LV Systolic Volume MOD 4C 26.4 cm??? LV Ejection Fraction MOD 4C 52.2 % LV Cardiac Index MOD 4C 1227.8 cm???/min???m??? LV Diastolic Length 4C 7.2 cm LV Systolic Length 4C 6.3 cm LV Diastolic Volume MOD 2C 58.9 cm??? LV Systolic Volume MOD 2C 19.5 cm??? LV Ejection Fraction MOD 2C 66.8 % LV Cardiac Index MOD 2C 1676.8 cm???/min???m??? LV Diastolic Length 2C 6.6 cm LV Systolic Length 2C 5.7 cm LA Volume 30.6 cm??? 18 - 58 / 22 - 52 cm??? LA Volume Index 17.9 cm???/m??? 16 - 28 cm???/m??? M-MODE Aortic Root Diameter MM 2.7 cm AV Cusp Separation MM 2.0 cm DOPPLER AV Peak Velocity 152.1 cm/s AV Peak Gradient 9.3 mmHg AV Mean Velocity 101.2 cm/s AV Mean Gradient 4.5 mmHg AV Velocity Time Integral 24.7 cm MV Area PHT 2.1 cm??? Mitral E Point Velocity 70.7 cm/s Mitral A Point Velocity 100.9 cm/s Mitral E to A Ratio 0.7 MV Deceleration Time 368.6 ms TR Peak Velocity 165.5 cm/s TR Peak Gradient 11.0 mmHg Right Ventricular Systolic Press 16.0 mmHg FINDINGS Left Ventricle Left ventricular ejection fraction is estimated at 55-60 %. Left ventricular cavity size normal. Left ventricular wall thickness normal. Normal left ventricular wall motion. Right Ventricle Normal right ventricular size and function. Right ventricular systolic pressure within normal limits. Right Atrium Normal right atrial size. No right atrial thrombus or mass seen. Left Atrium Normal left atrial size. No left atrial thrombus or mass present. Mitral Valve Structurally normal mitral valve. No mitral stenosis, regurgitation or prolapse. Aortic Valve Trileaflet aortic valve. No aortic valve stenosis or regurgitation. Tricuspid Valve Structurally normal tricuspid valve. Trace to mild tricuspid regurgitation. Pulmonic Valve Pulmonic valve not well visualized. No pulmonic regurgitation. Pericardium No pericardial effusion. Aorta Normal size aortic root and proximal ascending aorta. CONCLUSIONS LVEF 55% No obvious regional wall motion abnormality Normal RV size and systolic function No significant valvular dysfunction Previewed by: Dr Maycol Hernandez (Electronically Signed) Final Date: 07 May 2025 12:59
== END | disposition home or self-care (01) ==
LOC: RADECHMAIN 15:52
PROVIDERS: ATTEND Family Medicine
DX: R60.0 Localized edema (principal); I07.1 Rheumatic tricuspid insufficiency; I42.8 Other cardiomyopathies
CPT/HCPCS: 93306